=== PATIENT | female | born 1995 | race Caucasian/White ===

== ENCOUNTER 2019-09-13 14:39 | Emergency (ER) | payer BC, SELFPAY ==
[2019-09-13 14:59] VITALS: BP 124/76; PULSE 104; RESP 18; TEMP 36.9; O2SAT 99; BMI 28.1
--- NOTE | 2019-09-13 15:03 | HMH.EDUTC ---
[facility] [place] Clinical Impression: Otitis media Qualifiers: Otitis media type: unspecified Laterality: left Qualified Code(s): H66.92 - Otitis media, unspecified, left ear Disposition: Home, Self-Care Condition on Discharge: Good Instructions: Middle Ear Infection, Middle Ear Infections (Alternative Therapy), Sore Throat Additional Instructions: *Monitor Temp, Over the counter Motrin or Tylenol as directed/as needed Tylenol every 4 hours and Motrin every 6 hours (as long as your family doctor has told you that you can take it) for fever or pain. and straight to ER if unable to lower temp less than 101.0 after medication given *Warm salt water gargles may help to soothe the throat *Throat Lozenges *Warm fluids *Sleep elevated *Humidifier/Vaporizer *Flonase 2 sprays in each nostril daily but be aware that it may take 2-3 days before you notice improvement Follow up IMMEDIATELY for new or worsening symptoms or no Noticeable improvement over the next 48-72 hours. 911 for difficulty breathing or swallowing Prescriptions: Amoxicillin [Amoxicillin 500mg Cap] 500 mg PO TID #30 cap Transmission Status: Pending to [facility] Fluticasone Propionate [Flonase 50mcg nasal spray 16gm] 1 spr NS DAILY #1 bottle Transmission Status: Pending to [facility] Referrals: Provider,Referral, MD [Primary Care Provider] - As needed Time of Disposition: 15:16 Medical Decision Making - Viktor Inquiry Pt receiving controlled substance: No Viktor was queried for this patient: No Vital Signs: 09/13/19 14:59 Temperature 98.4 F Temperature Source Oral Pulse Rate [Right Brachial] 104 H Respiratory Rate 18 Blood Pressure [Right Arm] 124/76 Blood Pressure Mean [Right Arm] 92 Blood Pressure Source [Right Arm] Automatic Cuff Blood Pressure Position [Right Arm] Sitting 02 Sat by Pulse Oximetry 99 Oxygen Delivery Method Room Air - Lab Data Lab results reviewed: Yes: I reviewed the patient's lab results. [facility] [place] - General Stated complaint: ear pressure Time Seen by Provider: 09/13/19 15:03 Mode of Arrival: Ambulatory Source of Information: Patient Limitations: No Limitations Description of Symptoms (Recalled from Triage Doc. by RN): Pt reports having a sore throat for 5 days and ear pain for 3 days. She denies a fever or others symptoms at this time. HEENT Symptoms (Recalled from RN notes): Yes Resp Symptoms (Recalled from RN notes): No Skin Symptoms (Recalled from RN notes): No MS Symptoms (Recalled from RN notes): No Functional Status (Recalled from RN notes): NA - History of Present Illness Provider Complaint: Patient states that she has been sore throat and pressure like feeling in her left ear for about 5 days States that today she was still having pain with swallowing and throat feeling raw and irritated so she came in to get it checked Denies known exposure to COVID19 Denies fever - Related Data Previous Rx's Medication Instructions Recorded Amoxicillin [Amoxicillin 500mg 500 mg PO TID #30 cap 09/13/19 Cap] Fluticasone Propionate [Flonase 1 spr NS DAILY #1 bottle 09/13/19 50mcg nasal spray 16gm] Allergies Allergy/AdvReac Type Severity Reaction Status Date / Time No Known Allergies Allergy Verified 09/13/19 15:02 - Worker's Comp Is this a Worker's Comp case?: No [facility] History - Hepatitis A Screen Drug use history?: No High risk sexual behaviors?: No History of sexually transmitted infection?: No Currently employed?: No Childcare worker?: No Do you have indoor plumbing?: Yes Do you have electricity?: Yes Attestation statement:: This patient has been screened for Hepatitis A risk factors. I have reviewed the patient's past medical history: Yes Medical History: Denies:: Cancer, Diabetes Mellitus Type 1, Diabetes Mellitus Type 2, MRSA Amputation: No Fractures: No - Social History Smoking Status: Never smoker Alcohol Intake: never Occupational Status: emp
[2019-09-13 15:21] LABS: UTC Strep Screen (Rapid) Negative (Negative)
[2019-09-13 16:09] VITALS: BP 124/76; PULSE 104; RESP 18; TEMP 36.9; O2SAT 99
== END 2019-09-13 16:13 | disposition home or self-care (01) ==
PROVIDERS: Emergency Provider Nurse Practitioner
DX: H66.92 Otitis media, unspecified, left ear (principal)
CPT/HCPCS: 87880; 99201

== ENCOUNTER 2020-01-26 12:55 | Emergency (ER) | payer BC, SELFPAY ==
[2020-01-26 12:56] VITALS: BP 130/56; PULSE 96; RESP 19; TEMP 36.5; O2SAT 96; BMI 25.9
--- NOTE | 2020-01-26 13:23 | HMH.EDUTC ---
[facility] – [place] Disposition Clinical Impression: Sinusitis Qualifiers: Sinusitis location: unspecified location Chronicity: acute Recurrence: non-recurrent Qualified Code(s): J01.90 - Acute sinusitis, unspecified Disposition: Home, Self-Care Condition on Discharge: Good Instructions: Sinusitis, DI for Sinusitis Additional Instructions: Drink plenty of fluids. Take tylenol or ibuprofen for pain or fever. Take the medications as directed. Follow up with your regular doctor. GO TO THE ER FOR ANY WORSENING SYMPTOMS . FOLLOW THE DIRECTIONS ON THE COVID-19 HAND OUT THAT WE GAVE YOU REGARDING SELF-ISOLATION UNTIL YOU KNOW YOUR COVID-19 RESULTS Prescriptions: Brompheniramine/Pseudoephed/Dm [Bromfed Dm Cough Syrup] 5 ml PO Q6HP PRN #240 syrup PRN Reason: Cough Transmission Status: [facility] by [facility] Ondansetron [Zofran 4mg ODT] 4 mg PO Q8HP PRN #9 tab.rapdis PRN Reason: Nausea Transmission Status: Received by [facility] Azithromycin [Z-Jason 250mg Tab*] 250 mg PO UD DOSE PK #6 tab Transmission Status: Received by [id number] Referrals: PCP,No [Primary Care Provider] - Forms: Work/School Release Time of Disposition: 13:45 Medical Decision Making - Medical Records Medical records reviewed: No: I reviewed the patient's medical records. - Viktor Inquiry Pt receiving controlled substance: No Vital Signs: 01/26/20 12:56 01/26/20 14:12 Temperature 97.7 F 97.7 F Temperature Source Oral Oral Pulse Rate 96 H Pulse Rate [Left Radial] 96 H Respiratory Rate 19 19 Blood Pressure 130/56 L Blood Pressure [Right Arm] 130/56 L Blood Pressure Mean [Right Arm] 80 Blood Pressure Source [Right Arm] Automatic Cuff Blood Pressure Position [Right Arm] Sitting 02 Sat by Pulse Oximetry 96 Oxygen Delivery Method Room Air Room Air Orders (Tests/Meds): ORDERS Category Date Time Status Covid-19 Nasal PCR ([facility]) Routine Lab 01/26/20 13:35 Received [facility] [place] HPI - General Stated complaint: sore throat,ear pain,cough Time Seen by Provider: 01/26/20 13:23 Mode of Arrival: Ambulatory Source of Information: Patient Limitations: No Limitations Description of Symptoms (Recalled from Triage Doc. by RN): LAst night she started with ear tingling, no smell and hoarse HEENT Symptoms (Recalled from RN notes): Yes Resp Symptoms (Recalled from RN notes): No Skin Symptoms (Recalled from RN notes): No MS Symptoms (Recalled from RN notes): No Functional Status (Recalled from RN notes): wnl - History of Present Illness Provider Complaint: She states that for the past 2 days she has felt horrible. She has had a headache, sinus drainage, bilateral ear pain, nonproductive cough and sore throat. She denies any known exposure to covid, but she works at the [employer] around lots of people. - Related Data Previous Rx's Medication Instructions Recorded Amoxicillin [Amoxicillin 500mg 500 mg PO TID #30 cap 09/13/19 Cap] Fluticasone Propionate [Flonase 1 spr NS DAILY #1 bottle 09/13/19 50mcg nasal spray 16gm] Azithromycin [Z-Jason 250mg Tab*] 250 mg PO UD DOSE PK #6 tab 01/26/20 Brompheniramine/Pseudoephed/Dm 5 ml PO Q6HP PRN #240 syrup 01/26/20 [Bromfed Dm Cough Syrup] Ondansetron [Zofran 4mg ODT] 4 mg PO Q8HP PRN #9 tab.rapdis 01/26/20 Allergies Allergy/AdvReac Type Severity Reaction Status Date / Time No Known Allergies Allergy Verified 09/13/19 15:02 - Worker's Comp Is this a Worker's Comp case?: No [facility] History - Hepatitis A Screen Drug use history?: No High risk sexual behaviors?: No History of sexually transmitted infection?: No Currently employed?: No Childcare worker?: No Do you have indoor plumbing?: Yes Do you have electricity?: Yes Attestation statement:: This patient has been screened for Hepatitis A risk factors. I have reviewed the patient's past medical history: Yes Medical History: Denies:: Cancer, Diabetes Mellitus Type 1, Di
[2020-01-26 14:12] VITALS: BP 130/56; PULSE 96; RESP 19; TEMP 36.5; O2SAT 96
== END 2020-01-26 14:13 | disposition home or self-care (01) ==
PROVIDERS: Emergency Provider Nurse Practitioner Family
DX: J01.90 Acute sinusitis, unspecified (principal)
CPT/HCPCS: 99201; U0003

== ENCOUNTER 2021-04-10 20:53 | Emergency (ER) | payer SELFPAY ==
[2021-04-10 21:05] VITALS: BP 139/82; PULSE 132; RESP 20; TEMP 38.4; O2SAT 99; BMI 28.3
[2021-04-10 21:20] LABS: UTC Influenza A Antigen Negative (Negative); UTC Influenza B Antigen Negative (Negative); UTC Strep Screen (Rapid) Negative (Negative)
--- NOTE | 2021-04-10 21:21 | HMH.EDUTC ---
[facility] – [place] Disposition Clinical Impression: Viral syndrome Disposition: Home, Self-Care Condition on Discharge: Good Instructions: DI for Viral Syndrome, DI for Nausea -- Adult, DI for Fever (Symptom) -- Adult Additional Instructions: * No sign of bacterial infection. Likely viral. Virus can take 7-14 days to run their course *Monitor Temp, Over the counter Motrin or Tylenol as directed/as needed Tylenol every 4 hours and Motrin every 6 hours (as long as your family doctor has told you that you can take it) for fever or pain. and straight to ER if unable to lower temp less than 101.0 after medication given *Warm salt water gargles may help to soothe the throat *Throat Lozenges *Warm fluids like tea with honey may help to soothe the throat *Sleep elevated *Humidifier/Vaporizer Follow up IMMEDIATELY for new or worsening symptoms or no Noticeable improvement over the next 48-72 hours. 911 for difficulty breathing or swallowing You were tested for today for COVID19 your test result should be back in the next 24-48 hours, you may Check your results on the [facility] if you have trouble logging on you may call You was given a handout with instructions for Self Quarantine and Self isolation for while you wait on test results and what to do if they are positive If you are positive the Health Dept will be contacting you also Make sure to take your Vitamins Vit. C Vit D and Zinc if you can take them Prescriptions: Ondansetron [Zofran 4mg ODT] 4 mg PO TIDP PRN #10 tab PRN Reason: Nausea Transmission Status: Received by [facility] Referrals: Provider,Referral, [Primary Care Provider] - As needed Forms: Work/School Release Time of Disposition: 21:34 Medical Decision Making - Viktor Inquiry Pt receiving controlled substance: No Viktor was queried for this patient: No Vital Signs: 04/10/21 21:05 04/10/21 21:35 Temperature 101.1 F H 101.1 F H Temperature Source Oral Pulse Rate 132 H Pulse Rate [Right Brachial] 132 H Respiratory Rate 20 20 Blood Pressure 139/82 Blood Pressure [Right Arm] 139/82 Blood Pressure Mean [Right Arm] 101 Blood Pressure Source [Right Arm] Automatic Cuff Blood Pressure Position [Right Arm] Sitting 02 Sat by Pulse Oximetry 99 Oxygen Delivery Method Room Air - Lab Data Lab results reviewed: Yes: I reviewed the patient's lab results. Lab Results 04/10/21 21:09: Influenza Type A Ag Negative, Influenza Type B Ag Negative 04/10/21 21:09: Strep Scn Rapid [facility] Negative Orders (Tests/Meds): ED MEDICATIONS Discontinued Medications Generic Name Dose Route Start Last Admin Trade Name Freharish PRN Reason Stop Dose Admin Ibuprofen 800 mg 04/10/21 21:24 04/10/21 21:30 Ibuprofen 400 Mg Tablet PO 04/10/21 21:25 800 mg ONCE ONE Administration Ondansetron HCl 4 mg 04/10/21 21:29 04/10/21 21:30 Ondansetron 4mg Odt SL 04/10/21 21:30 4 mg ONCE ONE Administration ORDERS Category Date Time Status Covid-19 Nasal PCR ([facility]) Routine Lab 04/10/21 21:05 Stop Req Full Resp Panel w/COVID ([facility]) Routine Lab 04/10/21 21:05 Received Strep Screen Confirmation Stat Micro 04/10/21 21:09 Received [facility] UTC HPI - General Stated complaint: headache fever body ache nausea Time Seen by Provider: 04/10/21 21:22 Mode of Arrival: Ambulatory Source of Information: Patient Limitations: No Limitations Description of Symptoms (Recalled from Triage Doc. by RN): PATIENT C/O BODY ACHES, HEADACHE, CHILLS, AND SWEATS THAT STARTED APPROX 1500 THIS AFTERNOON HEENT Symptoms (Recalled from RN notes): Yes Resp Symptoms (Recalled from RN notes): No Skin Symptoms (Recalled from RN notes): No MS Symptoms (Recalled from RN notes): Yes Functional Status (Recalled from RN notes): WNL - History of Present Illness Provider Complaint: Patient state that she went to work this morning and was feeling a little achy States that as the day went on she continued to feel worse Sta
[2021-04-10 21:27] LABS: Adenovirus,PCR Not Detected (NotDetected); Bordetella Pertussis Not Detected (NotDetected); Chlamydophila Pneumoniae, PCR Not Detected (NotDetected); Coronavirus 229E Not Detected (NotDetected); Coronavirus NL63 Not Detected (NotDetected); Coronavirus OC43 Not Detected (NotDetected); Coronovirus HKU1,PCR Not Detected (NotDetected); Human Metapneumovirus Not Detected (NotDetected); Influenza A, PCR Not Detected (NotDetected); Influenza AH1, 2009 Not Detected (NotDetected); Influenza AH1, PCR Not Detected (NotDetected); Influenza AH3,PCR Not Detected (NotDetected); Influenza B, PCR Not Detected (NotDetected); Mycoplasma Pneumoniae, PCR Not Detected (NotDetected); Parainfluenza 1, PCR Not Detected (NotDetected); Parainfluenza 2, PCR Not Detected (NotDetected); Parainfluenza 3, PCR Not Detected (NotDetected); Parainfluenza 4, PCR Not Detected (NotDetected); Respiratory Syncytial Virus Not Detected (NotDetected); Rhinovirus/Enterovirus Not Detected (NotDetected)
[2021-04-10 21:35] VITALS: BP 139/82; PULSE 132; RESP 20; TEMP 37.9; O2SAT 99
[2021-04-11 04:13] LABS: Coronavirus 19, PCR Detected (NotDetected)
== END 2021-04-10 21:51 | disposition home or self-care (01) ==
PROVIDERS: Emergency Provider Nurse Practitioner
DX: U07.1 COVID-19 (principal)
CPT/HCPCS: 87581; 87632; 87798; 87804; 87880; 99203; C9803; G0463; U0003; U0005

== ENCOUNTER 2021-04-16 13:54 | Emergency (ER) | payer SELFPAY ==
[2021-04-16 15:40] VITALS: BP 121/71; PULSE 86; RESP 19; TEMP 37; O2SAT 100; BMI 21.9
[2021-04-16 15:52] VITALS: BP 121/71; PULSE 86; RESP 19; TEMP 37; O2SAT 100
--- NOTE | 2021-04-16 16:01 | HMH.EDUTC ---
[facility] – [place] Disposition Clinical Impression: COVID Disposition: Home, Self-Care Condition on Discharge: Good Instructions: DI for COVID-19 (Suspected or Confirmed ) Additional Instructions: covid swab was sent to lab, call tomorrow for results. self isolate until test results are known to be negative No sign of a bacterial infection. Likely viral. Viruses can take 7-14 days to run their course. Nasal saline and bulb syringe or nose Mar to remove nasal drainage to help with nasal congestion. Hard to eat, drink, sleep with nasal congestion so important to keep this cleaned out. Monitor temp. Tylenol or Motrin as needed for pain or fever Encourage fluids, water, Gatorade, Powerade, Pedialyte if infant/toddler/child Warm salt water gargles Warm fluids Sore throat lozenges Sleep elevated Humidifier/vaporizer Follow-up immediately for new or worsening symptoms or no noticeable improvement over the next 48-72 hours. Referrals: Provider,Referral, MD [Primary Care Provider] - Time of Disposition: 16:06 Medical Decision Making - Viktor Inquiry Pt receiving controlled substance: No Vital Signs: 04/16/21 15:40 04/16/21 15:52 Temperature 98.6 F 98.6 F Temperature Source Oral Pulse Rate 86 Pulse Rate [Right Brachial] 86 Respiratory Rate 19 19 Blood Pressure 121/71 Blood Pressure [Right Arm] 121/71 Blood Pressure Mean [Right Arm] 87 Blood Pressure Source [Right Arm] Automatic Cuff Blood Pressure Position [Right Arm] Sitting 02 Sat by Pulse Oximetry 100 Oxygen Delivery Method Room Air Orders (Tests/Meds): ORDERS Category Date Time Status Covid-19 Nasal PCR ([facility]) Routine Lab 04/16/21 15:51 Ordered [facility] [place] HPI - General Chief complaint: Urgent [facility] Stated complaint: covid positive 0104, covid test Time Seen by Provider: 04/16/21 16:01 Mode of Arrival: Ambulatory Source of Information: Patient Limitations: No Limitations Description of Symptoms (Recalled from Triage Doc. by RN): PATIENT NEEDING COVID TEST TO RETURN TO WORK HEENT Symptoms (Recalled from RN notes): No Resp Symptoms (Recalled from RN notes): No Skin Symptoms (Recalled from RN notes): No MS Symptoms (Recalled from RN notes): No Functional Status (Recalled from RN notes): WNL - History of Present Illness Provider Complaint: 25 yr old female presnets for covid test. tested positive 04/11 and needs a covid swab to return to work - Related Data Previous Rx's Medication Instructions Recorded Ondansetron [Zofran 4mg ODT] 4 mg PO TIDP PRN #10 tab 04/10/21 Allergies Allergy/AdvReac Type Severity Reaction Status Date / Time No Known Allergies Allergy Verified 09/13/19 15:02 - Worker's Comp Is this a Worker's Comp case?: No H History - Hepatitis A Screen Drug use history?: No High risk sexual behaviors?: No History of sexually transmitted infection?: No Currently employed?: No Childcare worker?: No Do you have indoor plumbing?: Yes Do you have electricity?: Yes Attestation statement:: This patient has been screened for Hepatitis A risk factors. I have reviewed the patient's past medical history: Yes Medical History: Denies:: Cancer, Diabetes Mellitus Type 1, Diabetes Mellitus Type 2, MRSA Amputation: No Fractures: No - Social History Smoking Status: Never smoker Alcohol Intake: never Occupational Status: employed ROS Obtained: Yes Systems reviewed as appropriate & no additional complaints - Constitutional Constitutional: Reports system reviewed and no additional complaints, except as docu, Denies fever(s) - Eyes Eyes: Reports system reviewed and no additional complaints, except as docu - ENT Ears, Nose, Mouth, and Throat: Reports system reviewed and no additional complaints, except as docu, Denies dizziness - Cardiovascular Cardiovascular: Reports system reviewed and no additional complaints, except as docu, Denies chest pain - Respiratory Respiratory: Reports system reviewed a
== END 2021-04-16 16:19 | disposition home or self-care (01) ==
PROVIDERS: Emergency Provider Nurse Practitioner Family
DX: U07.1 COVID-19 (principal)
CPT/HCPCS: 99202; C9803; G0463; U0003; U0005

== ENCOUNTER → 2022-02-22 13:07 | Outpatient (CLI) | payer OTHER, SELFPAY | PROVIDERS: PCP Nurse Practitioner Family; Visit Provider Nurse Practitioner Obstetrics & Gynecology | DX: N92.6 Irregular menstruation, unspecified (principal); Z32.00 Encounter for pregnancy test, result unknown | CPT/HCPCS: 36415; 84702 ==

== ENCOUNTER → 2022-03-06 09:52 | Outpatient (CLI) | payer OTHER, SELFPAY ==
[2022-03-06 10:38] LABS: Basophils # 0.1 K/mm3 (0-0.2); Basophils % 0.8 % (0.1-2.0); Eosinophils # 0.1 K/mm3 (0.0-0.4); Eosinophils % 1.2 % (0.1-12.0); Hematocrit 40.4 % (37.0-47.0); Hemoglobin 13.1 g/dL (12.2-16.2); Lymphocytes % 17.5 % (10-50); Mean Corpuscular HGB Conc 32.5 g/dL (31.8-35.4); Mean Corpuscular Hemoglobin 29.1 pg (27.0-31.2); Mean Corpuscular Volume 89.6 fl (81-99); Mean Platelet Volume 8.8 fl (7.4-10.4); Monocytes # 0.3 K/mm3 (0.1-1.0); Monocytes % 4.4 % (1.7-9.3); Neutrophils # 4.4 K/mm3 (1.8-7.8); Neutrophils % 76.1 % (37.0-80.0); Platelet Count 250 K/mm3 (142-424); Red Cell Distribution Width 12.6 % (11.5-17.5); White Blood Count 5.8 K/mm3 (4.8-10.8)
[2022-03-06 10:58] LABS: Alanine Aminotransferase 12 U/L (12-78); Albumin Level 4.6 g/dl (3.5-5.0); Albumin/Globulin Ratio 1.7 (1.1-1.8); Alkaline Phosphatase 91 U/L (38-126); Anion Gap 20.6 mEq/L (5-15); Aspartate Amino Transferase 22 U/L (14-36); Bilirubin,Total 0.6 mg/dl (0.2-1.3); Blood Urea Nitrogen 4 mg/dl (7-17); Calcium 9.6 mg/dl (8.4-10.2); Carbon Dioxide 24 mmol/L (22.0-30.0); Chloride 96 mmol/L (98-107); Estimated Glomerular Filt Rate 150 ml/min (>60); GFR (African American) 182 ML/MIN (>60); Globulin 2.7 g/dL (1.3-3.2); Glucose 90 mg/dl (74-100); Potassium 3.6 mmoL/L (3.5-5.1); Sodium 137 mmol/L (136-145); Total Protein,Serum 7.3 g/dl (6.3-8.2)
--- NOTE | 2022-03-06 11:08 | US_ITS ---
FINAL REPORT CLINICAL HISTORY: large reddened soft tissue mass rt sapular region FINDINGS: Limited sonographic images of the right scapula were obtained. There is a heterogeneous solid-appearing mass measuring up to 6 cm along the right scapula. IMPRESSION: Mass in the right scapula as detailed above. Follow-up MRI with and without contrast may be helpful. Reviewed, Interpreted and Dictated by Roland Colin MD Transcribed by Ivanna Du Authenticated and [facility]
== END ==
PROVIDERS: PCP Nurse Practitioner Family; Visit Provider Nurse Practitioner Family
DX: Q79.8 Other congenital malformations of musculoskeletal system (principal)
CPT/HCPCS: 36415; 76604; 80053; 85025

== ENCOUNTER 2022-03-15 09:08 | Day surgery (SDC) | payer OTHER, SELFPAY ==
[2022-03-14 10:54] VITALS: BMI 25.9
[2022-03-15 09:25] VITALS: BP 133/67; PULSE 107; RESP 18; TEMP 36.6; O2SAT 100
--- NOTE | 2022-03-15 10:38 | EXP.OP.NOTE ---
Date of procedure: 03/15/22 Pre-op Diagnosis:: Right posterior shoulder soft tissue mass Post-op Diagnosis:: Same Procedure performed:: Incisional biopsy of right posterior shoulder soft tissue mass Surgeon:: Juaquin Crews MD Anesthesia: local Estimated blood loss (mL): 15 Operative findings:: Soft tissue mass with the overall general appearance of firm adipose tissue with surrounding patchy hematoma Operative note:: After informed consent was obtained the patient was taken to the procedure room. Her right posterior shoulder was prepped and draped in a sterile fashion. After infiltration with local anesthetic a small elliptical incision was made along the lateral portion of the lesion. Underlying soft tissue with the appearance of firm adipose tissue and patchy surrounding hematoma was excised. Minimal tissue was obtained and the decision was made to proceed with a direct incisional biopsy from the superior margin of the lesion. After infiltration of local anesthetic a larger elliptical incision at the apex of the lesion was made. The underlying subcutaneous tissue was sharply dissected and passed off for pathologic evaluation. Due to the overall tension of the wound secondary to soft tissue swelling the decision to forego closure was made. Both sites were packed with dry gauze and dressings were applied. The patient was transferred to recovery in stable condition. Condition: stable Disposition: no change Specimens:: Incisional biopsy right posterior shoulder soft tissue mass Complications:: No immediate
== END 2022-03-15 10:50 | disposition home or self-care (01) ==
PROVIDERS: PCP Nurse Practitioner Family; Visit Provider Surgery
PROC: (CPT 23065; principal; 2022-03-15 10:15)
DX: Z79.899 Other long term (current) drug therapy; C44.692 Other specified malignant neoplasm of skin of right upper limb, including shoulder
CPT/HCPCS: 23065

== ENCOUNTER 2022-03-16 13:29 | Outpatient (CLI) | payer OTHER, SELFPAY | END 2022-03-16 13:48 | disposition home or self-care (01) | LOC: INF 13:31 | PROVIDERS: PCP Nurse Practitioner Family; Visit Provider Surgery | DX: D49.2 Neoplasm of unspecified behavior of bone, soft tissue, and skin (principal); Z48.01 Encounter for change or removal of surgical wound dressing | CPT/HCPCS: G0463 ==

== ENCOUNTER 2022-03-17 15:47 | Outpatient (CLI) | payer OTHER, SELFPAY ==
--- NOTE | 2022-03-17 16:36 | PC.NURSE ---
Pt came in with spouse for dressing change. I packed wound with saline soaked gauze, covered with abd pads, and applied medipore tape to hold all in place. In old dressing there were a few placed of dried blood. She had a little discomfort with taking the old dressing off. She tolerated over all very well.
== END 2022-03-17 16:00 | disposition home or self-care (01) ==
LOC: INF 15:48
PROVIDERS: PCP Nurse Practitioner Family; Visit Provider Surgery
DX: D49.2 Neoplasm of unspecified behavior of bone, soft tissue, and skin (principal); Z48.01 Encounter for change or removal of surgical wound dressing
CPT/HCPCS: G0463

== ENCOUNTER → 2022-03-18 14:44 | Outpatient (CLI) | payer OTHER, SELFPAY | PROVIDERS: PCP Nurse Practitioner Family; Visit Provider Surgery | DX: D49.2 Neoplasm of unspecified behavior of bone, soft tissue, and skin (principal); Z48.01 Encounter for change or removal of surgical wound dressing | CPT/HCPCS: G0463 ==

== ENCOUNTER 2022-03-19 11:47 | Outpatient (CLI) | payer OTHER, SELFPAY | END 2022-03-19 12:00 | disposition home or self-care (01) | LOC: INF 11:48 | PROVIDERS: PCP Nurse Practitioner Family; Visit Provider Surgery | DX: D49.2 Neoplasm of unspecified behavior of bone, soft tissue, and skin (principal); Z48.01 Encounter for change or removal of surgical wound dressing | CPT/HCPCS: G0463 ==

== ENCOUNTER 2022-03-20 12:32 | Outpatient (CLI) | payer OTHER, SELFPAY | END 2022-03-20 12:40 | disposition home or self-care (01) | LOC: INF 12:32 | PROVIDERS: PCP Nurse Practitioner Family; Visit Provider Surgery | DX: D49.2 Neoplasm of unspecified behavior of bone, soft tissue, and skin (principal); Z48.01 Encounter for change or removal of surgical wound dressing | CPT/HCPCS: G0463 ==

== ENCOUNTER 2022-03-22 12:28 | Outpatient (CLI) | payer OTHER, SELFPAY | END 2022-03-22 12:45 | disposition home or self-care (01) | LOC: INF 12:28 | PROVIDERS: PCP Nurse Practitioner Family; Visit Provider Surgery | DX: D49.2 Neoplasm of unspecified behavior of bone, soft tissue, and skin (principal); Z48.01 Encounter for change or removal of surgical wound dressing | CPT/HCPCS: G0463 ==

== ENCOUNTER 2022-03-23 11:24 | Outpatient (CLI) | payer OTHER, SELFPAY ==
--- NOTE | 2022-03-23 11:45 | PC.NURSE ---
1145-notifed of redness, heat, streaking, green/yellowish drainage; pack as normal; called in antibiotics and keep an eye out for other s/s of infection
== END 2022-03-23 11:58 | disposition home or self-care (01) ==
LOC: INF 11:24
PROVIDERS: PCP Nurse Practitioner Family; Visit Provider Surgery
DX: D49.2 Neoplasm of unspecified behavior of bone, soft tissue, and skin (principal); Z48.01 Encounter for change or removal of surgical wound dressing; M75.91 Shoulder lesion, unspecified, right shoulder
CPT/HCPCS: G0463

== ENCOUNTER 2022-03-24 15:42 | Outpatient (CLI) | payer OTHER, SELFPAY ==
[2022-03-24 16:09] VITALS: BMI 26.9
== END 2022-03-24 16:04 | disposition home or self-care (01) ==
LOC: INF 15:43
PROVIDERS: PCP Nurse Practitioner Family; Visit Provider Surgery
DX: Z48.01 Encounter for change or removal of surgical wound dressing (principal); D49.2 Neoplasm of unspecified behavior of bone, soft tissue, and skin
CPT/HCPCS: G0463

== ENCOUNTER 2022-03-25 18:39 | Outpatient (CLI) | payer OTHER, SELFPAY ==
[2022-03-25 19:00] VITALS: BMI 25.0
== END 2022-03-25 19:03 | disposition home or self-care (01) ==
LOC: INF 18:40
PROVIDERS: PCP Nurse Practitioner Family; Visit Provider Surgery
DX: Z48.01 Encounter for change or removal of surgical wound dressing (principal); D49.2 Neoplasm of unspecified behavior of bone, soft tissue, and skin
CPT/HCPCS: G0463

== ENCOUNTER 2022-03-26 10:58 | Outpatient (CLI) | payer OTHER, SELFPAY | END 2022-03-26 11:20 | disposition home or self-care (01) | LOC: INF 10:59 | PROVIDERS: PCP Nurse Practitioner Family; Visit Provider Surgery | DX: Z48.01 Encounter for change or removal of surgical wound dressing (principal); D49.2 Neoplasm of unspecified behavior of bone, soft tissue, and skin | CPT/HCPCS: G0463 ==

== ENCOUNTER 2022-03-27 11:24 | Outpatient (CLI) | payer OTHER, SELFPAY | END 2022-03-27 11:50 | disposition home or self-care (01) | LOC: INF 11:26 | PROVIDERS: PCP Nurse Practitioner Family; Visit Provider Nurse Practitioner Family | DX: Z48.01 Encounter for change or removal of surgical wound dressing (principal); D49.2 Neoplasm of unspecified behavior of bone, soft tissue, and skin | CPT/HCPCS: G0463 ==

== ENCOUNTER 2022-03-28 11:51 | Outpatient (CLI) | payer OTHER, SELFPAY | END 2022-03-28 12:31 | disposition home or self-care (01) | LOC: INF 11:51 | PROVIDERS: PCP Nurse Practitioner Family; Visit Provider Surgery | DX: Z48.01 Encounter for change or removal of surgical wound dressing (principal); D49.2 Neoplasm of unspecified behavior of bone, soft tissue, and skin | CPT/HCPCS: G0463 ==

== ENCOUNTER 2022-03-29 12:18 | Outpatient (CLI) | payer OTHER, SELFPAY | END 2022-03-29 12:40 | disposition home or self-care (01) | LOC: INF 12:19 | PROVIDERS: PCP Nurse Practitioner Family; Visit Provider Surgery | DX: Z48.01 Encounter for change or removal of surgical wound dressing (principal); D49.2 Neoplasm of unspecified behavior of bone, soft tissue, and skin | CPT/HCPCS: G0463 ==

== ENCOUNTER → 2022-03-29 12:51 | Outpatient (CLI) | payer OTHER, SELFPAY ==
--- NOTE | 2022-03-29 12:51 | MR_ITS ---
FINAL REPORT CLINICAL HISTORY: tigre patient has had a hump on the back of her scapula since feb 2022 patient stated it is tender patient has also been having it get packed and patient is also 11 weeks FINDINGS: Multiplanar MR imaging of the right shoulder was performed without contrast. The tendons of the rotator cuff are intact without evidence of rotator cuff tear. There is mild edema in the AC joint capsule. No abnormal fluid is seen in the subacromial/subdeltoid bursa. The glenoid labrum is intact. The long head of the biceps tendon is intact. No significant glenohumeral joint effusion is seen. There is no evidence of fracture or dislocation. The musculature is intact. There is a mass at the posterior aspect of the shoulder measuring 8 x 7.5 x 6 cm which does not appear to be simple fluid. This mass extends to the skin surface, abuts and likely involves the trapezius muscle. Findings may represent neoplasm versus complex fluid collection including abscess or hematoma. IMPRESSION: Mass in the posterior aspect of the shoulder with differential diagnosis as detailed above. Reviewed, Interpreted and Dictated by Abdulkadir Garcia III, MD Transcribed by Ivanna Du Authenticated and [facility]
== END ==
PROVIDERS: PCP Nurse Practitioner Family; Visit Provider Surgery
DX: D49.2 Neoplasm of unspecified behavior of bone, soft tissue, and skin (principal)
CPT/HCPCS: 73221

== ENCOUNTER → 2022-03-30 21:23 | Outpatient (CLI) | payer OTHER, SELFPAY ==
[2022-03-30 21:00] VITALS: BP 110/70; PULSE 76; RESP 16; TEMP 36.6; O2SAT 98
--- NOTE | 2022-03-30 21:30 | PC.NURSE ---
Patient presented for outpatient dressing change to right shoulder. States worried about infection, reports odor present today. States Bactrim called in last week, but she spoke with OB doctor and instructed not to take and another ABX would be called in. Dressing removed, large swollen area to right shoulder, 2 open areas present. Bright red bleeding present from top incision, tissue beefy red, lower incision with yellow slough present. Redness around incision. Spoke with Dr. Rojas regarding wound. Dr. Rojas in to assess wound. Site cleansed with saline and Hibclens, Dry sterile dressing applied covered with ABD pad. Verbal Order from Dr. Rojas for Keflex 500 mg tid x [address] [facility].
[2022-03-30 22:26] VITALS: BMI 26.3
== END ==
PROVIDERS: PCP Nurse Practitioner Family; Visit Provider Surgery
DX: Z48.01 Encounter for change or removal of surgical wound dressing (principal); D49.2 Neoplasm of unspecified behavior of bone, soft tissue, and skin
CPT/HCPCS: G0463

== ENCOUNTER → 2022-03-31 15:32 | Outpatient (CLI) | payer OTHER, SELFPAY ==
[2022-03-31 15:30] VITALS: BP 152/80; PULSE 109; RESP 17; TEMP 36.9; O2SAT 97
[2022-03-31 15:50] VITALS: BP 152/80; PULSE 109; RESP 17; TEMP 36.9; O2SAT 97
== END ==
PROVIDERS: PCP Nurse Practitioner Family; Visit Provider Surgery
DX: Z48.01 Encounter for change or removal of surgical wound dressing (principal); D49.2 Neoplasm of unspecified behavior of bone, soft tissue, and skin
CPT/HCPCS: G0463

== ENCOUNTER 2022-04-01 16:52 | Outpatient (CLI) | payer OTHER, SELFPAY | END 2022-04-01 17:16 | disposition home or self-care (01) | LOC: INF 16:53 | PROVIDERS: PCP Nurse Practitioner Family; Visit Provider Surgery | DX: Z48.01 Encounter for change or removal of surgical wound dressing (principal); D49.2 Neoplasm of unspecified behavior of bone, soft tissue, and skin | CPT/HCPCS: G0463 ==

== ENCOUNTER 2022-04-02 12:36 | Outpatient (CLI) | payer OTHER, SELFPAY | END 2022-04-02 12:45 | disposition home or self-care (01) | LOC: INF 12:37 | PROVIDERS: PCP Nurse Practitioner Family; Visit Provider Surgery | DX: Z48.01 Encounter for change or removal of surgical wound dressing (principal); D49.2 Neoplasm of unspecified behavior of bone, soft tissue, and skin | CPT/HCPCS: G0463 ==

== ENCOUNTER 2022-04-03 12:30 | Outpatient (CLI) | payer OTHER, SELFPAY ==
--- NOTE | 2022-04-03 12:50 | PC.NURSE ---
1690-called and notified prema in 's office that patient was walking over and needs to be seen soon for worsening condition.
== END 2022-04-03 12:48 | disposition home or self-care (01) ==
LOC: INF 12:30
PROVIDERS: PCP Nurse Practitioner Family; Visit Provider Surgery
DX: Z48.01 Encounter for change or removal of surgical wound dressing (principal); D49.2 Neoplasm of unspecified behavior of bone, soft tissue, and skin
CPT/HCPCS: G0463

== ENCOUNTER → 2022-04-12 10:00 | Outpatient (CLI) | payer OTHER, SELFPAY ==
[2022-04-16 22:07] LABS: Neisseria gonorrhoeae, NAA Negative (Negative)
== END ==
PROVIDERS: Visit Provider Nurse Practitioner Obstetrics & Gynecology
DX: Z34.90 Encounter for supervision of normal pregnancy, unspecified, unspecified trimester (principal)
CPT/HCPCS: 87491; 87591

== ENCOUNTER → 2022-04-16 15:18 | Outpatient (CLI) | payer OTHER, SELFPAY | PROVIDERS: PCP Nurse Practitioner Family; Visit Provider Orthopaedic Surgery | DX: Z01.812 Encounter for preprocedural laboratory examination (principal) | CPT/HCPCS: C9803; U0003; U0005 ==

== ENCOUNTER 2022-05-11 16:16 | Emergency (ER) | payer OTHER, SELFPAY ==
--- NOTE | 2022-05-11 16:32 | HMH.EDGENADL ---
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 Subsequently she had a skin graft with Dr. Felton with plastic surgery. She has felt good over the last month but to the last 2 days. At which point she began having generalized malaise feeling like she was near syncope and having significant increased pain erythema and foul-smelling just discharge from her wound. She called plastic surgery clinic who told her to come get evaluated [facility] her to being sent to the [facility]. To complicate matters further she is also 16 weeks . Related Data Home Medications Medication Instructions Recorded Confirmed zngmjqik-niw-Mu-FA 1 mg 1 tab PO DAILY Supplement 03/14/22 05/09/22 tablet Allergies Allergy/AdvReac Type Severity Reaction Status Date / Time No Known Allergies Allergy Verified 05/09/22 09:38 [facility] Disclaimer: The information contained in this section may have been updated after the patient was seen, as this information can be updated by other users. Medical History No significant past medical history Surgical History Hx of surgical biopsy right shoulder mass Family History Other Family history of cancer Family history of diabetes mellitus Lung cancer Social History Smoking Status: Never smoker alcohol intake: never current occupational status: employed Travel in the last 8 weeks: None caffeine: Yes ROS Obtained: Yes All systems reviewed & no additional complaints except as documented and Yes unobtainable due to mental condition Physical Exam General General appearance: alert and in no apparent distress Head Head exam: atraumatic and normocephalic Eye Eye exam: Present normal appearance, PERRL and EOMI ENT ENT exam: Present normal exam and normal oropharynx Neck Neck exam: Present normal inspection, full ROM and trachea midline; Absent tenderness Chest Chest inspection: Present normal inspection and symmetric chest wall rise Respiratory Respiratory exam: Present normal lung sounds bilaterally; Absent respiratory distress, wheezes or stridor Cardiovascular Cardiovascular exam: Present tachycardia Abdominal Exam Abdominal exam: Present soft; Absent distention, tenderness or guarding Back Exam Back exam: Present other (Patient has large wounds extending on the lateral aspect of her right back and flank and her right shoulder which have purulent and proteinaceous debris with mild erythema and tenderness surrounding all the wounds upon any type of palpation there is a significant amount of purulent drainage that ext) Neurological Exam Neurological exam: Present alert, oriented X3 and CN II-XII intact Medical Decision Making Viktor Inquiry Pt receiving controlled substance: No Orders (Tests/Meds): ED MEDICATIONS Generic Name Dose Route Start Last Admin Trade Name Freq PRN Reason Stop Dose Admin Sodium Chloride 500 mls @ 999 mls/hr 05/11/22 17:00 05/11/22 17:01 Sod Chlor 0.9% 1000ml Bag IV 05/11/22 17:30 999 mls/hr .Q31M SAUMYA Administration Vancomycin HCl 1,500 mg/ 250 mls @ 125 mls/hr 05/11/22 17:00
[2022-05-11 16:51] VITALS: BP 107/53; PULSE 137; RESP 20; TEMP 37.1; O2SAT 97; BMI 24.5
--- NOTE | 2022-05-11 16:52 | PC.NURSE ---
Consulting [facility] [place] plastic surgery team
[2022-05-11 17:15] LABS: Basophils % 0.4 % (0.1-2.0); Eosinophils # 0.1 K/mm3 (0.0-0.4); Hematocrit 30.9 % (37.0-47.0); Hemoglobin 10.2 g/dL (12.2-16.2); Lymphocytes # 0.8 K/mm3 (0.7-4.5); Lymphocytes % 9.4 % (10-50); Mean Corpuscular HGB Conc 33.1 g/dL (31.8-35.4); Mean Corpuscular Hemoglobin 28.8 pg (27.0-31.2); Mean Corpuscular Volume 86.8 fl (81-99); Mean Platelet Volume 8.7 fl (7.4-10.4); Monocytes # 0.5 K/mm3 (0.1-1.0); Monocytes % 6.1 % (1.7-9.3); Neutrophils # 6.6 K/mm3 (1.8-7.8); Neutrophils % 83.1 % (37.0-80.0); Platelet Count 439 K/mm3 (142-424); Red Blood Count 3.55 M/mm3 (4.20-5.40); Red Cell Distribution Width 14.1 % (11.5-17.5); White Blood Count 7.9 K/mm3 (4.8-10.8)
--- NOTE | 2022-05-11 17:16 | PC.NURSE ---
JOHN MUHAMMAD speaking with [facility]
--- NOTE | 2022-05-11 17:21 | PC.NURSE ---
has accepted patient; er to er
[2022-05-11 17:24] LABS: Alanine Aminotransferase 19 U/L (12-78); Albumin Level 3.7 g/dl (3.5-5.0); Alkaline Phosphatase 172 U/L (38-126); Anion Gap 10.7 mEq/L (5-15); Aspartate Amino Transferase 21 U/L (14-36); Bilirubin,Total 0.3 mg/dl (0.2-1.3); Blood Urea Nitrogen 7 mg/dl (7-17); Calcium 8.8 mg/dl (8.4-10.2); Carbon Dioxide 26 mmol/L (22.0-30.0); Chloride 103 mmol/L (98-107); Creatinine Clearance Estimated 204 mL/min (50-200); Estimated Glomerular Filt Rate 150 ml/min (>60); GFR (African American) 182 ML/MIN (>60); Globulin 3.6 g/dL (1.3-3.2); Glucose 101 mg/dl (74-100); Potassium 3.7 mmoL/L (3.5-5.1); Sodium 136 mmol/L (136-145); Total Protein,Serum 7.3 g/dl (6.3-8.2)
[2022-05-11 17:29] LABS: C-Reactive Protein 130.2 mg/L (0-4)
[2022-05-11 17:32] VITALS: BP 103/46; PULSE 120; RESP 17; O2SAT 100
[2022-05-11 17:43] VITALS: BP 100/40; PULSE 113; RESP 17; O2SAT 99
--- NOTE | 2022-05-11 17:47 | PC.NURSE ---
called report to malu dickerson at
--- NOTE | 2022-05-11 17:53 | PC.NURSE ---
Notified [facility] of patient transfer to ER
[2022-05-11 18:00] VITALS: BP 100/46; PULSE 114; RESP 16; O2SAT 100
[2022-05-11 18:14] LABS: Erythrocyte Sedimentation Rate > 140 mm/hr (0-20)
[2022-05-11 19:44] VITALS: BP 100/87; PULSE 114; RESP 18; TEMP 37.1; O2SAT 100
== END 2022-05-11 19:57 | disposition other institution (70) ==
PROVIDERS: Emergency Provider Student in an Organized Health Care Education/Training Program; PCP Nurse Practitioner Family
DX: T81.40XA Infection following a procedure, unspecified, initial encounter (principal); X58.XXXA Exposure to other specified factors, initial encounter; C49.9 Malignant neoplasm of connective and soft tissue, unspecified; Z80.9 Family history of malignant neoplasm, unspecified; Z83.3 Family history of diabetes mellitus
CPT/HCPCS: 80053; 85025; 85651; 86140; 87040; 90471; 96361; 96365; 96375; 99285; J2543; J3370

== ENCOUNTER → 2022-05-31 09:39 | Outpatient (CLI) | payer OTHER, SELFPAY ==
--- NOTE | 2022-05-31 09:39 | US_ITS ---
FINAL REPORT CLINICAL HISTORY: 20 week anatomy scan FINDINGS: There is a single live intrauterine gestation. Presentation is breech. The cervix is closed and measures 3.3 cm. Placenta is anterior grade 1. movement is noted. Heartbeat is detected at 147 beats per minute. Four-chamber heart is noted. ABDOMEN: Both kidneys are unremarkable. SPINE: No anomalies identified. MEASUREMENTS: ULTRASOUND AGE: 20 weeks 4 days. GESTATION AGE: 20 weeks 3 days. ESTIMATED WEIGHT: 356 g GROWTH PERCENTILE: 48 % BPD: 4.87 cm corresponding to 20 weeks 6 days. OFD: 6.19 cm corresponding to 20 weeks 6 days. HC: 17.50 cm corresponding to 20 weeks day. AC: 15.46 cm corresponding to 20 weeks 5 days. FL: 3.31 cm corresponding to 20 weeks 3 days. CEREBELLUM: 2.03 cm corresponding to 20 weeks 5 days. HUMERUS: 3.27 cm corresponding to 21 weeks 1 day. HC/AC: 1.13 CI: 79% FL/BPD: 68% FL/AC: 21% IMPRESSION: Single living IUP with an ultrasound age of 20 weeks 4 days. Reviewed, Interpreted and Dictated by Abdulkadir Garcia III, MD Transcribed by Ivanna Du Authenticated and [facility]
== END ==
PROVIDERS: PCP Nurse Practitioner Family; Visit Provider Nurse Practitioner Obstetrics & Gynecology
DX: Z34.90 Encounter for supervision of normal pregnancy, unspecified, unspecified trimester (principal); Z3A.20 20 weeks gestation of pregnancy
CPT/HCPCS: 76811

== ENCOUNTER → 2022-06-06 11:15 | Outpatient (CLI) | payer OTHER, SELFPAY ==
[2022-06-06 12:18] LABS: Basophils # 0.1 K/mm3 (0-0.2); Basophils % 0.6 % (0.1-2.0); Eosinophils # 0.1 K/mm3 (0.0-0.4); Eosinophils % 1.2 % (0.1-12.0); Hematocrit 31.2 % (37.0-47.0); Hemoglobin 10.3 g/dL (12.2-16.2); Lymphocytes # 1.2 K/mm3 (0.7-4.5); Lymphocytes % 15.8 % (10-50); Mean Corpuscular HGB Conc 32.9 g/dL (31.8-35.4); Mean Corpuscular Hemoglobin 28.5 pg (27.0-31.2); Mean Corpuscular Volume 86.5 fl (81-99); Mean Platelet Volume 8.9 fl (7.4-10.4); Monocytes # 0.4 K/mm3 (0.1-1.0); Monocytes % 5.2 % (1.7-9.3); Neutrophils # 5.7 K/mm3 (1.8-7.8); Neutrophils % 77.1 % (37.0-80.0); Platelet Count 346 K/mm3 (142-424); Red Blood Count 3.61 M/mm3 (4.20-5.40); Red Cell Distribution Width 15.2 % (11.5-17.5); White Blood Count 7.4 K/mm3 (4.8-10.8)
[2022-06-07 09:24] LABS: Rubella Antibodies, IgG 1.88 index (Immune >0.99)
[2022-06-07 12:12] LABS: Rapid Plasma Reagin Ab Titer Non Reactive (NonRea<1:1)
[2022-06-09 23:15] LABS: HIV Screen 4th Generation wRfx NON REACTIVE; Hepatitis B Surface Antigen NEGATIVE; Hepatitis C Antibody NON REACTIVE
== END ==
PROVIDERS: PCP Nurse Practitioner Family; Visit Provider Nurse Practitioner Obstetrics & Gynecology
DX: Z34.90 Encounter for supervision of normal pregnancy, unspecified, unspecified trimester (principal)
CPT/HCPCS: 36415; 85025; 86593; 86703; 86762; 86850; 87340; 87380; G0432

== ENCOUNTER → 2022-07-11 11:22 | Outpatient (CLI) | payer OTHER, SELFPAY ==
[2022-07-11 11:50] LABS: Basophils % 0.5 % (0.1-2.0); Eosinophils # 0.1 K/mm3 (0.0-0.4); Eosinophils % 1.6 % (0.1-12.0); Hematocrit 32.8 % (37.0-47.0); Hemoglobin 10.4 g/dL (12.2-16.2); Lymphocytes # 1.2 K/mm3 (0.7-4.5); Mean Corpuscular HGB Conc 31.7 g/dL (31.8-35.4); Mean Corpuscular Volume 82.1 fl (81-99); Mean Platelet Volume 9.9 fl (7.4-10.4); Monocytes # 0.3 K/mm3 (0.1-1.0); Monocytes % 4.4 % (1.7-9.3); Neutrophils # 4.7 K/mm3 (1.8-7.8); Neutrophils % 74.5 % (37.0-80.0); Platelet Count 237 K/mm3 (142-424); Red Blood Count 3.99 M/mm3 (4.20-5.40); White Blood Count 6.3 K/mm3 (4.8-10.8)
[2022-07-11 12:01] LABS: Glucose,Fasting 77 mg/dl (74-100)
[2022-07-11 13:37] LABS: Glucose 1 Hour 88 mg/dL (74-100)
== END ==
PROVIDERS: PCP Nurse Practitioner Family; Visit Provider Nurse Practitioner Obstetrics & Gynecology
DX: Z34.90 Encounter for supervision of normal pregnancy, unspecified, unspecified trimester (principal); Z3A.25 25 weeks gestation of pregnancy
CPT/HCPCS: 36415; 82951; 85025

== ENCOUNTER 2022-09-11 08:48 | Outpatient (CLI) | payer OTHER, SELFPAY ==
[2022-09-11 09:07] VITALS: BP 115/74; PULSE 107; RESP 16; TEMP 36.8; O2SAT 99; BMI 29.2
[2022-09-11 10:03] VITALS: BMI 29.6
[2022-09-11 10:20] LABS: Microscopic, Urine URINE MICROSCOPIC (MICROSCOPIC)
[2022-09-11 10:29] LABS: Appearance,Urine CLEAR (Clear); Bilirubin,Urine Negative (Negative); Blood, Urine 2+ (Negative); Color,Urine YELLOW (Yellow); Glucose,Urine (UA) Negative (Negative); Ketones,Urine Negative (Negative); Leukocyte Esterase,Urine Negative (Negative); Nitrate,Urine Negative (Negative); Protein,Urine TRACE (Negative); Urobilinogen,Urine 0.2 EU/dl (0.2)
[2022-09-11 10:36] LABS: Bacteria,Urine 1+ /lpf; WBC,Urine Occasional #/hpf (0-3)
[2022-09-11 10:37] LABS: Amphetamine/Metha Screen,Urine Negative ng/ml (<1000)
[2022-09-11 10:38] LABS: Barbiturates Screen,Urine Negative ng/ml (<200)
[2022-09-11 10:39] LABS: Benzodiazepines Screen,Urine Negative ng/ml (<200); Cannabinoid Screen,Urine Negative ng/ml (<50)
[2022-09-11 10:40] LABS: Cocaine Screen,Urine Negative ng/ml (<300); Methadone Screen,Urine Negative ng/ml (<300)
[2022-09-11 10:41] LABS: Phencyclidine Screen,Urine Negative ng/ml (<25)
[2022-09-11 10:42] LABS: Opiate Screen,Urine Negative ng/ml (<300)
== END 2022-09-11 11:03 | disposition home or self-care (01) ==
LOC: OBOUT 08:50 → OB 08:50
PROVIDERS: PCP Nurse Practitioner Family; Visit Provider Nurse Practitioner Obstetrics & Gynecology
DX: O26.893 Other specified pregnancy related conditions, third trimester (principal); Z3A.35 35 weeks gestation of pregnancy
CPT/HCPCS: 59025; 80305; 81001; 96365; G0463

== ENCOUNTER 2022-09-19 09:40 | Outpatient (CLI) | payer OTHER, SELFPAY ==
--- NOTE | 2022-09-19 09:40 | US_ITS ---
PROCEDURE: US OB BIOPHYSICAL PROFILE CLINICAL INDICATION: sga COMPARISON: Twenty week anatomy scan, May 10, 2022. FINDINGS: From her last menstrual period she is 36weeks 2days. The following parameters are obtained: Viable fetus in the breech presentation. Average ultrasound age is 35weeks 5days. Estimated due date by ultrasound is 10/19/2022. Estimated weight is 2,692 grams ,5lb 14.94oz. 31percentile. heart rate: 139bpm bpm. BPD: 36weeks 3days OFD: 36weeks 3days HC: 35 weeks 5 days AC: 35 weeks 2 days FL: 35 weeks 5 days HC/AC: 1.01 Cephalic index: 0.8 FL/BPD: 0.78 FL/AC: 0.22 Amniotic fluid index: 5.82cm breathing movements: Were seen. The rest of the biopsies profile was not documented. Doppler evaluation of the umbilical artery: SD ratio: 2.0 Resistive index: 0.51 No obvious anomalies evident.Kidney, three-vessel cord appear normal. Placenta: Anterior grade 2 IMPRESSION: 1. Viable fetus in the breech presentation with an anterior placenta grade 2. 2. Amniotic fluid index is low at 5.82. 3. There has been good interval growth and the fetus is 31st percentile 4. Biophysical profile was not documented but breathing movement is seen on the cine loop. 5. The physician on-call was notified of the results. Dictated by: Nigel Ward MD 09/19/2022 19:04 Nigel Ward MD in OV 09/19/2022 19:04
[2022-09-19 12:13] VITALS: BP 119/59; PULSE 86; RESP 18; TEMP 36.6; BMI 30.4
== END 2022-09-19 13:40 | disposition home or self-care (01) ==
LOC: RAD 11:51 → OB 11:52
PROVIDERS: PCP Nurse Practitioner Family; Visit Provider Nurse Practitioner Obstetrics & Gynecology
DX: O36.5930 Maternal care for other known or suspected poor fetal growth, third trimester, not applicable or unspecified (principal); Z3A.36 36 weeks gestation of pregnancy
CPT/HCPCS: 59025; 76816; 76819; 76820

== ENCOUNTER → 2022-09-22 08:59 | Outpatient (CLI) | payer OTHER, SELFPAY | PROVIDERS: Visit Provider Obstetrics & Gynecology | DX: Z34.93 Encounter for supervision of normal pregnancy, unspecified, third trimester (principal); Z3A.36 36 weeks gestation of pregnancy | CPT/HCPCS: 86403 ==

== ENCOUNTER → 2022-10-02 14:50 | Outpatient (CLI) | payer OTHER, SELFPAY ==
--- NOTE | 2022-10-02 14:51 | US_ITS ---
PROCEDURE: US OB BIOPHYSICAL PROFILE CLINICAL INDICATION: breech COMPARISON: Ultrasound September 19, 2022 FINDINGS: From her last menstrual period she is 38weeks 1day. Fetus in the breech presentation with an anterior placenta grade 2. The fluid is subjectively low. The following parameters are obtained: Average ultrasound age is 37weeks 2days. Estimated due date by ultrasound is 10/21/2022. Estimated weight is 6lb 13.46oz. 52Percentile. heart rate: 138bpm bpm. BPD: 38weeks 1day OFD: 38weeks 1day HC: 37 weeks 0 days AC: 37 weeks 0 days FL: 37 weeks 1 day HC/AC: 0.99 Cephalic index: 0.82 FL/BPD: 0.78 FL/AC: 0.22 Amniotic fluid index: 6.34cm Qualitative AFV: 2 breathing movements: 0 Gross body movements: 2 Tone: 2 Biophysical profile score: 6 No obvious anomalies evident.Kidneys, three-vessel cord appear normal. IMPRESSION: 1. Fetus persists in the breech presentation. 2. Anterior placenta grade 2. 3. The fluid is low with an amniotic fluid index of 6.34 cm. 4. Biophysical profile 09/13. No breathing movement seen. 5. Patient is to go to labor and delivery for NST. 6. Physician notified. Dictated by: Nigel Ward MD 10/03/2022 07:12 Nigel Ward MD in OV 10/03/2022 07:12
== END ==
PROVIDERS: PCP Nurse Practitioner Obstetrics & Gynecology; Visit Provider Nurse Practitioner Obstetrics & Gynecology
DX: O32.1XX0 Maternal care for breech presentation, not applicable or unspecified (principal)
CPT/HCPCS: 76816; 76819

== ENCOUNTER 2022-10-02 17:22 | Inpatient (IN) | payer OTHER, SELFPAY ==
[2022-10-02 16:15] VITALS: BP 131/84; PULSE 106; RESP 20; TEMP 37.2; O2SAT 97; BMI 30.2
[2022-10-02 17:23] VITALS: BMI 30.2
[2022-10-02 17:44] LABS: Basophils % 0.1 % (0.1-2.0); Eosinophils # 0.1 K/mm3 (0.0-0.4); Hematocrit 30.7 % (37.0-47.0); Hemoglobin 10.1 g/dL (12.2-16.2); Lymphocytes % 12.8 % (10-50); Mean Corpuscular Hemoglobin 24.8 pg (27.0-31.2); Mean Platelet Volume 10.6 fl (7.4-10.4); Monocytes # 0.4 K/mm3 (0.1-1.0); Monocytes % 5.4 % (1.7-9.3); Neutrophils # 6.2 K/mm3 (1.8-7.8); Neutrophils % 80.7 % (37.0-80.0); Platelet Count 242 K/mm3 (142-424); Red Blood Count 4.09 M/mm3 (4.20-5.40); Red Cell Distribution Width 16.2 % (11.5-17.5); White Blood Count 7.7 K/mm3 (4.8-10.8)
[2022-10-03] VITALS (9 sets, daily range): BP systolic 96–130; BP diastolic 62–81; PULSE 70–92; RESP 16–19; TEMP 36.1–37.3; O2SAT 98–100; BMI 30.2
--- NOTE | 2022-10-03 09:05 | EXP.HP ---
History of Present Illness *Admission Date: 10/02/22 *Reason for visit:: Oligohydramnios, breech, irregular heartbeat *History of present illness: She is a 26-year-old 3 para 1 at 38 weeks gestational age. She is known to have a breech presentation. This was confirmed yesterday at the time of ultrasound. She had mild oligohydramnios with an amniotic fluid index of 6 cm. At the time of her ultrasound there was no breathing movement seen. We took her upstairs for a nonstress test the baby was having an irregular heartbeat and it seemed to be skipping a beat every fourth beat. As result of the irregular heartbeat, lack of breathing movements and oligohydramnios we elected to admit her and perform a section. She also had a large mass on her right shoulder early in . 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 [facility] Disclaimer: The information contained in this section may have been updated after the patient was seen, as this information can be updated by other users. Medical History No significant past medical history Surgical History Hx of surgical biopsy Family History Family history of cancer Family history of diabetes mellitus Lung cancer Social History Smoking Status: Never smoker alcohol intake: never current occupational status: employed Travel in the last 8 weeks: None caffeine: Yes Review of Systems Review of Systems Review of systems:: pertinent systems reviewed and negative unless documented below Meds Home Medications and Allergies Home Medications Medication Instructions Recorded Confirmed Type fixleybv-nhx-Mm-FA 1 mg 1 tab PO DAILY Supplement 03/14/22 10/03/22 History tablet ferrous sulfate 325 mg (65 mg 325 mg PO DAILY Supplement 10/03/22 10/03/22 History iron) tablet New Prescriptions to Start Prescriptions: Allergies Allergy/AdvReac Type Severity Reaction Status Date / Time No Known Allergies Allergy Verified 09/27/22 13:51 Exam Data for Last 24 hours Vital signs and Labs for Last 24 Hours: Temp Pulse Resp BP Pulse Ox 98.9 F 106 H 20 131/84 97 10/02/22 16:15 10/02/22 16:15 10/02/22 16:15 10/02/22 16:15 10/02/22 16:15 Laboratory Results - last 24 hr 10/02/22 17:25: WBC 7.7, RBC 4.09 L, Hgb 10.1 L, Hct 30.7 L, MCV 75.0 L, MCH 24.8 L, MCHC 33.0, RDW 16.2, Plt Count 242, MPV 10.6 H, Neut % (Auto) 80.7 H, Lymph % (Auto) 12.8, Callaway % (Auto) 5.4, Eos % (Auto) 1.0, Baso % (Auto) 0.1, Neut # (Auto) 6.2, Lymph # (Auto) 1.0, Callaway # (Auto) 0.4, Eos # (Auto) 0.1, Baso # (Auto) 0.0 10/02/22 17:25: Blood Type B Positive, Antibody Screen Negative I & O for Last 24 hours: Intake & Output 09/30/22 10/01/22 10/02/22 10/03/22 11:59 11:59 11:59 11:59 Weight 199 lb Constitutional Constitutional: no acute distress *Routine HEENT Exam Head: Present normocephalic Eye: Present EOMI and PERRL ENT: Present mucous membranes moist *Routine Neck Exam Neck: Present supple; Absent lymphadenopathy *Routine Respiratory Exam Respiratory: Present CTA bilaterally *Routine Cardiovascular Exam Cardiovascular: Present RRR *Routine Abdominal Exam Abdominal: Present soft and normoactive bowel sounds; Absent tenderness *Routine Rectal Exam Rectal:: deferred *Routine Genitalia Exam Genitalia:: deferred *Routine Extremities Exam Extremities: Absent cyanosis, clubbing or edema *Routine Skin Exam Skin: Present warm; Absent rash *Routine Neurological Exam Neurological: Present alert and oriented X3 Assessment and Plan *Assessment and plan (1) Breech presentation: Status: Acute Category: Medical Code(s): O32.1XX0 - Maternal care for breech presentation, not applic
[2022-10-03 09:11] LABS: Chloride 106 mmol/L (98-107)
[2022-10-03 09:12] LABS: Potassium 3.6 mmoL/L (3.5-5.1); Sodium 135 mmol/L (136-145)
[2022-10-03 09:15] LABS: Anion Gap 8.6 mEq/L (5-15); Blood Urea Nitrogen 6 mg/dl (7-17); Calcium 8.4 mg/dl (8.4-10.2); Carbon Dioxide 24 mmol/L (22.0-30.0); Creatinine Clearance Estimated 306 mL/min (50-200); Estimated Glomerular Filt Rate 194 ml/min (>60); GFR (African American) 235 ML/MIN (>60); Glucose 77 mg/dl (74-100)
[2022-10-03 10:41] LABS: Microscopic, Urine URINE MICROSCOPIC (MICROSCOPIC)
[2022-10-03 10:44] LABS: Appearance,Urine CLEAR (Clear); Bilirubin,Urine Negative (Negative); Blood, Urine Negative (Negative); Color,Urine YELLOW (Yellow); Glucose,Urine (UA) Negative (Negative); Ketones,Urine Negative (Negative); Leukocyte Esterase,Urine Negative (Negative); Nitrate,Urine Negative (Negative); Protein,Urine Negative (Negative)
[2022-10-03 11:12] LABS: Bacteria,Urine 1+ /lpf; RBC,Urine Occasional #/hpf (0-3)
[2022-10-03 11:20] LABS: Amphetamine/Metha Screen,Urine Negative ng/ml (<1000)
[2022-10-03 11:21] LABS: Barbiturates Screen,Urine Negative ng/ml (<200); Benzodiazepines Screen,Urine Negative ng/ml (<200)
[2022-10-03 11:22] LABS: Cannabinoid Screen,Urine Negative ng/ml (<50)
[2022-10-03 11:23] LABS: Cocaine Screen,Urine Negative ng/ml (<300); Methadone Screen,Urine Negative ng/ml (<300)
[2022-10-03 11:24] LABS: Opiate Screen,Urine Negative ng/ml (<300); Phencyclidine Screen,Urine Negative ng/ml (<25)
--- NOTE | 2022-10-03 12:07 | P.PN_ITS ---
[facility] Disclaimer: The information contained in this section may have been updated after the patient was seen, as this information can be updated by other users. Medical History No significant past medical history Surgical History Hx of surgical biopsy Family History Family history of cancer Family history of diabetes mellitus Lung cancer Social History Smoking Status: Never smoker alcohol intake: never substance use type: denies use current occupational status: employed Travel in the last 8 weeks: None caffeine: Yes [facility] Anesthesia Checklist Patient Identification Patient Identification: Arm Band and Verbal (Name & ) Structural Data Admitted From: Direct Admit Planned Operative Procedure/s: c section Verified Documents: Surgical Consent and History and Physical NPO Status Verified Time NPO: 00:00 Airway Assessment C-Spine Mobility Assessed: Yes TMJ Mobility Assessed: Yes Neurological Assessment Level of Consciousness: Awake and Alert Hx Seizures: No Numbness or tingling in extremities: No Anesthesia Plan Anesthesia Risk discussed: Yes ASA Class: II Anesthesia Type: Spinal
--- NOTE | 2022-10-03 13:37 | EXP.ANES.I ---
[facility] Anesthesia Record Part I Anesthesia Record I Intake, IV Amount: 1,000 Estimated blood loss (mL): 1,000 Urine output (mL): 250 Blood Pressure: 117/76 SaO2: 99 Pulse Rate: 79 Respiratory Rate: 16 Temperature: 98 F Patient is:: Awake and Stable Stable to PACU at:: 13:35 Comments:: tap block done per surgeon at end of case
--- NOTE | 2022-10-03 13:54 | EXP.OP.NOTE ---
Date of procedure: 10/03/22 Pre-op Diagnosis:: Term , breech presentation, oligohydramnios, irregular heartbeat Post-op Diagnosis:: Term , breech presentation, oligohydramnios, irregular heartbeat Procedure performed:: Primary lower segment transverse section Surgeon:: Nigel Ward MD Direct Mail Coordinator(s):: Dr. Mckeon CASE COORDINATOR:: Other (Maryse Jackson) Anesthesia: spinal Estimated blood loss (mL): 1,000 Clinical Note:: She is a 26-year-old 3 para 1 aborta 1 who was 38+ weeks gestational age. She was scheduled for a next week due to breech presentation. She was seen yesterday for an ultrasound and the biopsy profile was 6 of 8. There is no breathing movement seen. The nonstress test that we did showed that the baby had an irregular heartbeat. Ultrasound showed oligohydramnios with an amniotic fluid max of 6.0 cm. As result of these findings we elected perform a primary lower segment transverse section. Operative findings:: She delivered a liveborn male child at 12:50 PM in the afternoon of October 02, 2022. The baby had Apgars of 9 at 1 minute 9 at 5 minutes. pH was 7.44. He was in the frederick breech presentation. The baby weighed 7 pounds 10 ounces. Operative note:: She was taken to the operating room where spinal anesthesia was found be adequate. She could still feel some discomfort along the incision so I injected approximately 30 cc of 1% Xylocaine subcutaneously prior to the incision. She was prepped and draped in normal sterile fashion in the supine position. A Archer catheter was in the bladder. A Pfannenstiel skin incision was made with knife then carried through to the underlying layer of fascia.. The fascia was opened in the midline with knife and extended laterally using Linares scissors. Calderon clamps were applied to the superior aspect of the fascial incision which was tented up and the underlying rectus muscles dissected off using cautery. The Boone clamps were then applied to the inferior aspect of the fascial incision which in a similar fashion was tented up and the underlying rectus muscles dissected off using cautery. The rectus muscles were then in the midline, the peritoneum identified, and entered bluntly. An Min retractor was then inserted into the abdominal cavity. A bladder flap was made with Metzenbaum scissors. Transverse incision was made through the uterine muscle above the bladder flap to the amnion. This incision was then extended superiorly and inferiorly using the fingers as traction. The amnion was entered sharply with knife. There was clear amniotic fluid. The 's breech was then delivered atraumatically. This was followed by the after coming shoulders and the after coming head. A loose nuchal cord was then reduced. The oropharynx and nasopharynx were bulb suctioned. The was vigorous so we allowed the cord to continue to pulsate for approximately 1 minute. The cord was then doubly clamped and cut. The infant was then handed off to Dr. Russell who assigned Apgars of 9 at 1 minute and 9 at 5 minutes. We then obtained cord blood. The pH was 7.44. Using gentle traction on the cord and fundal massage I was able to easily deliver the placenta intact. It had a normal three-vessel cord. There was bleeding from each lateral edge of the uterus and sponge forceps were used to obtain hemostasis. The uterus was then cleared of clots and debris . The corners of the uterine incision were then closed with interrupted [id number]-cvyoa Vicryl suture. This obtained excellent hemostasis. The uterine incision was then closed using running 0 Vicryl suture in a locked fashion. A second layer of the same suture was used to imbricate the first layer. The bladder peritoneum was then closed using running 2-0 Vicryl suture in a locked fashion. The gutters and cul-de-sac were then cleared of clots and debris . Once again hemostasis was assured. The fascia wa
--- NOTE | 2022-10-03 14:53 | SUR.OPER ---
1250- TOB of viable male . PH-7.44
--- NOTE | 2022-10-04 08:43 | EXP.ACUTE.PN ---
Subjective *Date: 10/04/22 *Time: 07:15 Interval history: She is doing well this morning. Her hemoglobin is 8.0. We will go ahead and give her Venofer this morning. She otherwise feels well. Her pain is reasonably well controlled. She is bottlefeeding. Medical Exam Vital signs and Labs for Last 24 Hours: Vital Signs Temp Pulse Pulse Pulse Resp BP BP 10/03/22 20:15 99.1 F 92 H 19 96/62 L 10/03/22 14:05 97.0 F L 80 18 10/03/22 14:00 70 18 10/03/22 13:55 73 18 10/03/22 13:50 73 18 10/03/22 13:45 71 18 10/03/22 13:40 79 18 10/03/22 13:35 97.0 F L 77 18 10/03/22 13:39 98 F 79 16 117/76 10/03/22 13:39 98 F 79 16 117/76 BP Pulse Ox 10/03/22 20:15 98 10/03/22 14:05 120/68 99 10/03/22 14:00 130/76 99 10/03/22 13:55 127/78 100 10/03/22 13:50 116/80 100 10/03/22 13:45 125/71 100 10/03/22 13:40 111/81 99 10/03/22 13:35 117/76 98 10/03/22 13:39 10/03/22 13:39 Intake and Output 10/03/22 10/04/22 10/04/22 19:59 03:59 11:59 Intake Total 1999 Output Total 700 / 700 Balance 1999 -700 / 1300 Intake: Intake, Total IV Amount 1999 Output: Output, Urine Amount (Catheter) 700 / 700 Archer 700 / 700 Other: Weight 199 lb Patient Weight 10/04/22 11:59 Weight 199 lb Laboratory Results - last 24 hr 10/02/22 17:25: Blood Type B Positive, Antibody Screen Negative, Crossmatch (AHG) See Detail 10/03/22 08:45: Sodium 135 L, Potassium 3.6, Chloride 106, Carbon Dioxide 24, Anion Gap 8.6, BUN 6 L, Creatinine 0.40 L, Estimated Creat Clear 306 H, Estimated GFR 194, Est GFR ( Amer) 235, Glucose 77, Calcium 8.4 10/03/22 09:05: Urine Color Yellow, Urine Appearance Clear, Urine pH 7.0, Ur Specific Frederick 1.020, Urine Protein Negative, Urine Glucose (UA) Negative, Urine Ketones Negative, Urine Blood Negative, Urine Nitrate Negative, Urine Bilirubin Negative, Urine Urobilinogen 1.0, Ur Leukocyte Esterase Negative, Urine RBC Occasional, Urine WBC 3-5, Ur Squamous Epith Cells 3-5, Urine Bacteria 1+, Urine Opiates Screen Negative, Urine Methadone Screen Negative, Ur Barbituates Screen Negative, Ur Phencyclidine Scrn Negative, Ur Amphetamines Screen Negative, U Benzodiazepines Scrn Negative, Urine Cocaine Screen Negative, U Marijuana (THC) Screen Negative 10/04/22 07:15: Hgb 8.0 L, Hct 25.0 L I & O for Labs for Last 24 Hours: Intake & Output 10/01/22 10/02/22 10/03/22 10/04/22 11:59 11:59 11:59 11:59 Intake Total 1999 / 1999 Output Total 700 / 700 Balance 1300 / 1300 Weight 199 lb 199 lb Head: Present atraumatic Neck: Present normal inspection Respiratory: Present normal respiratory effort; Absent accessory muscle use Assessment and Plan *Assessment and plan (1) Oligohydramnios antepartum: Status: Acute Qualifiers: Fetus number: single or unspecified fetus Qualified Code(s): O41.00X0 - Oligohydramnios, unspecified trimester, not applicable or unspecified Category: Medical Code(s): O41.00X0 - Oligohydramnios, unspecified trimester, not applicable or unspecified (2) Breech presentation at : Status: Acute Category: Medical Code(s): O32.1XX0 - Maternal care for breech presentation, not applicable or unspecified (3) Delivery by section using low vertical uterine incision: Status: Acute Category: Medical Code(s): O82 - Encounter for delivery without indication (4) Anemia-delivered w/ complication: Status: Acute Category: Medical Code(s): O99.03 - Anemia complicating the puerperium Plan We will go ahead and start Venofer this morning. We will give her 1 infusion of this prior to her going home. She is otherwise doing well. Her hemoglobin is 8.0 today. She should be able to go home tomorrow.
[2022-10-04 20:42] VITALS: BP 120/68; PULSE 100; RESP 18; TEMP 37; O2SAT 99
--- NOTE | 2022-10-05 08:26 | EXP.DC.SUM ---
General Admission date:: 10/02/22 Discharge date: 10/05/22 HPI HPI HPI: POD # 2 s/p PLTCS Resting comfortably in bed. Pain controlled. Light lochia. She is breast feeding. Voiding without difficulty and passing flatus. Tolerating regular diet. Ambulting well ad fatou. Denies fever/chills, chest pain and shortness of breath. No headaches or vision changes. Denies swelling. Hospital Course Hospital Course Hospital Course: She is a 26-year-old 3 para 1 at 38 weeks gestational age. She is known to have a breech presentation. This was confirmed yesterday at the time of ultrasound. She had mild oligohydramnios with an amniotic fluid index of 6 cm. At the time of her ultrasound there was no breathing movement seen. We took her upstairs for a nonstress test the baby was having an irregular heartbeat and it seemed to be skipping a beat every fourth beat. As result of the irregular heartbeat, lack of breathing movements and oligohydramnios we elected to admit her and perform a section. She also had a large mass on her right shoulder early in . 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 She underwent primary on 10/03/22. She delivered a live male baby weighing 7 lbs 10 oz. APGARS 9, 9. EBL 1000 mL. She received Venofer 200 mg IV x 1 dose on POD # 1. She did well postoperatively. Pain controlled. Light lochia. Voiding without difficulty and passing flatus. Tolerating regular diet. Vital signs stable, afebrile. Heart regular rate and rhythm. Lungs clear to auscultation. Abdomen soft, nontender. No lower extremity edema. Normal hospital course. Exam Data for Last 24 hours Vital signs and Labs for Last 24 Hours: Temp Pulse Resp BP Pulse Ox 98.6 F 100 H 18 120/68 99 10/04/22 20:42 10/04/22 20:42 10/04/22 20:42 10/04/22 20:42 10/04/22 20:42 I & O for Last 24 hours: Intake & Output 10/02/22 10/03/22 10/04/22 10/05/22 23:59 23:59 23:59 23:59 Intake Total 1999 / 1999 Output Total 700 / 700 Balance 1300 / 1300 Weight 199 lb 199 lb Constitutional Constitutional: no acute distress *Routine HEENT Exam Head: Present normocephalic and atraumatic Eye: Absent conjunctivae pink ENT: Present mucous membranes moist and dentition normal *Routine Neck Exam Neck: Present full ROM *Routine Respiratory Exam Respiratory: Present CTA bilaterally and normal respiratory effort *Routine Cardiovascular Exam Cardiovascular: Present RRR *Routine Abdominal Exam Abdominal: Present soft and normoactive bowel sounds; Absent tenderness or distended Comments: uterine fundus firm and below umbilicus, pfannenstiel incision clean/dry/intact *Routine Rectal Exam Patient deferred: visual exam *Routine Exam Patient deferred: external exam *Routine Extremities Exam Extremities: Present full ROM; Absent edema or calf tenderness *Routine Neurological Exam Neurological: Present alert, oriented X3 and moving all extremities Routine Psychiatric Exam Psychiatric: Present normal affect and cooperative DS: Diagnosis Discharge Diagnosis (1) Oligohydramnios antepartum: Status: Acute Code(s): O41.00X0 - Oligohydramnios, unspecified trimester, not applicable or unspecified Qualifiers: Fetus number: single or unspecified fetus Qualified Code(s): O41.00X0 - Oligohydramnios, unspecified trimester, not applicable or unspecified (2) Breech presentation at : Status: Acute Code(s): O32.1XX0 - Maternal care for breech presentation, not applicable or unspecified (3) Delivery by section using low vertical uterine incision: Status: Acute Code(s): O82 - Encounter for delivery without indication (4) Anemia-delivered w/ complication: Status: Acute Code(s): O99.03 - Anemia complicating the puerperium Meds Home Medications and Allergies Home Medications Medication
[2022-10-08 08:20] VITALS: BP 120/68; PULSE 80; TEMP 36.1
--- NOTE | 2022-10-08 08:20 | P.PNANES_ITS ---
[facility] Anesthesia Record Part II Anesthesia Record Part II Discharge Time: 14:05 Destination: Obstetric Gynecology Dept PACU nurse assessment reviewed?: Yes Patient Condition:: Good Anesthesia Complications:: None Swallowing reflex intact?: Yes Cyanosis?: No Blood Pressure: 120/68 Pulse Rate: 80 Temperature: 97 F Mental Status: Alert & Oriented Pain level:: 0 Nausea and/or vomitting:: None Intake, IV Amount: 0
== END 2022-10-05 11:57 | disposition home or self-care (01) | DRG 787 ==
LOC: OBOUT 17:23 → OB 17:23
PROVIDERS: Admitting Provider Nurse Practitioner Obstetrics & Gynecology; PCP Nurse Practitioner Family; Visit Provider Nurse Practitioner Obstetrics & Gynecology
PROC: 10D00Z1 Extraction of Products of Conception, Low, Open Approach (ICD-10-PCS; CPT 59514; principal; 2022-10-03 12:00)
DX: O41.03X0 Oligohydramnios, third trimester, not applicable or unspecified (principal); C49.10 Malignant neoplasm of connective and soft tissue of unspecified upper limb, including shoulder; Z3A.38 38 weeks gestation of pregnancy; Z37.0 Single live birth; O32.1XX0 Maternal care for breech presentation, not applicable or unspecified; O76 Abnormality in fetal heart rate and rhythm complicating labor and delivery; O90.81 Anemia of the puerperium
CPT/HCPCS: 59514; 36415; 59025; 76816; 76819; 80048; 80305; 81001; 82800; 85014; 85018; 85025; 86850; 94761; C9290; G0283; J1756; J2405

== ENCOUNTER 2022-10-21 18:36 | Inpatient (IN) | payer OTHER, SELFPAY ==
[2022-10-21] VITALS (10 sets, daily range): BP systolic 112–135; BP diastolic 51–73; PULSE 78–132; RESP 15–22; TEMP 37.1–38; O2SAT 96–100; BMI 26.3; BMI 25.8
--- NOTE | 2022-10-21 18:51 | EXP.UTC ---
Discharge Plan Disposition Patient Disposition: Still a Patient Condition: Fair Prescriptions Prescriptions: No Action [id number]-oxs-Mf-FA 1 mg Tablet 1 tab PO DAILY oxycodone 5 mg Tablet 5 mg PO Q4HP PRN (Reason: Moderate To Severe Pain (4-10)) Qty: 20 0RF ibuprofen 800 mg tablet 800 mg PO Q8H PRN (Reason: pain) Qty: 20 0RF polyethylene glycol 3350 [Miralax] 17 gram/dose powder 17 g PO BID PRN (Reason: constipation) Qty: 238 0RF Referrals Follow up/Referrals: Megan Sin APRN [Primary Care Provider] - See instructions Clinical Impressions Clinical Impression: Chest pain, Status post Discharge ED Provider: Diogo Paris [facility] General Stated complaint: back pain,fever Time Seen by Provider: 10/21/22 18:51 History of Present Illness Provider Complaint: She states that for the past 1 day she has had fever, chest pain and back pain. She had a 3 weeks ago. She denies any urinary complaints. Related Data Home Medications Medication Instructions Recorded Confirmed [id number] 1 mg 1 tab PO DAILY Supplement 03/14/22 10/18/22 tablet Previous Rx's Medication Instructions Recorded ibuprofen 800 mg tablet 800 mg PO Q8H PRN pain #20 tabs 10/05/22 oxycodone 5 mg tablet 5 mg PO Q4HP PRN Moderate To 10/05/22 Severe Pain (4-10) #20 tabs polyethylene glycol 3350 17 17 g PO BID PRN constipation #238 10/05/22 gram/dose oral powder (Miralax) grams Allergies Allergy/AdvReac Type Severity Reaction Status Date / Time No Known Allergies Allergy Verified 10/18/22 13:49 [facility] Disclaimer: The information contained in this section may have been updated after the patient was seen, as this information can be updated by other users. 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 Surgical History Hx of surgical biopsy Family History Other Family history of cancer Family history of diabetes mellitus Lung cancer Social History Smoking Status: Never smoker alcohol intake: never substance use type: denies use current occupational status: employed Travel in the last 8 weeks: None caffeine: Yes ROS Obtained: Yes All systems reviewed & no additional complaints except as documented Constitutional Constitutional: Denies chills and Denies fever(s) Eyes Eyes: Denies eye discharge ENT Ears, Nose, Mouth, and Throat: Denies dizziness, Denies otalgia and Denies sore throat Cardiovascular Cardiovascular: Reports as per HPI and Reports chest pain Respiratory Respiratory: Denies shortness of breath, Denies chest congestion, Denies cough, Denies stridor and Denies wheezing Gastrointestinal Gastrointestingal: Denies nausea or vomiting Musculoskeletal Musculoskeletal: Reports as per HPI and Reports back pain Integumentary/Breasts Skin/Breast: Denies rash Neurologic Neurologic: Denies dizziness and Denies paresthesias Allergic/Immunologic Allergic/Immunologic: Denies wheezing Physical Exam General General appearance: alert and in no apparent distress Head Head exam: atraumatic, normocephalic and normal inspection Eye Eye exam: Present normal appearance, PERRL and EOMI ENT ENT exam: Present normal exam, normal oropharynx, mucous membranes moist, TM's normal bilaterally and normal external ear exam Neck Neck exam: Present normal inspection, full ROM and trachea midline; Absent meningismus or lymphadenopathy Chest Chest inspection: Present normal inspection and symmetric chest wall rise; Absent tenderness Respiratory Respiratory exam: Present normal lung sounds bilaterally; Absent respiratory distress
--- NOTE | 2022-10-21 18:59 | HMH.EDGENADL ---
Discharge Plan Disposition Patient Disposition: Admitted Condition: Fair Clinical Impressions Clinical Impression: Loculated pleural effusion, Status post , History of sarcoma Discharge ED Provider: Phillip Garcia General Adult HPI General Chief complaint: Chest Pain Stated complaint: back pain,fever Time Seen by Provider: 10/21/22 18:59 Mode of Arrival: Ambulatory Source of Information: Patient Limitations: No Limitations Description of Symptoms (Recalled from ER Triage Doc. by RN): Patient reports having a csection 3 weeks ago and now is unable to take a deep breath without intense pain, has a fever and intense back pain that she feels is related to her spinal she received for her c section. History of Present Illness HPI narrative: Patient is a 27-year-old female here with pleuritic chest pain and midline lumbar spine back pain. She is 3 weeks from a . She also states she recently had extensive surgery [facility] getting a sarcoma removed from her right shoulder and right mid back. She is scheduled for radiation at the end of this month. She is not on chemotherapy. She developed a fever today to 101.5 has not had any antipyretics since that time. She describes the pain as being central to her chest with deep inspiration and she is short of breath as a result of this. She has had some discomfort in her left medial aspect of her thigh but she just thought that was normal. This is new different pain that she previously had. She denies any lower extremity swelling or history of DVT or PE. She is not on any anticoagulants or antiplatelet agents. She denies any respiratory symptoms any sore throat any urinary symptoms from an infectious standpoint. Related Data Home Medications Medication Instructions Recorded Confirmed vuklkkpj-ecv-Lx-FA 1 mg 1 tab PO DAILY Supplement 03/14/22 10/18/22 tablet Previous Rx's Medication Instructions Recorded ibuprofen 800 mg tablet 800 mg PO Q8H PRN pain #20 tabs 10/05/22 oxycodone 5 mg tablet 5 mg PO Q4HP PRN Moderate To 10/05/22 Severe Pain (4-10) #20 tabs polyethylene glycol 3350 17 17 g PO BID PRN constipation #238 10/05/22 gram/dose oral powder (Miralax) grams Allergies Allergy/AdvReac Type Severity Reaction Status Date / Time No Known Allergies Allergy Verified 10/21/22 19:32 [facility] Disclaimer: The information contained in this section may have been updated after the patient was seen, as this information can be updated by other users. 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 Surgical History Hx of surgical biopsy Family History Other Family history of cancer Family history of diabetes mellitus Lung cancer Social History Smoking Status: Never smoker alcohol intake: never substance use type: denies use current occupational status: employed Travel in the last 8 weeks: None caffeine: Yes ROS Obtained: Yes All systems reviewed & no additional complaints except as documented Physical Exam General General appearance: alert and in no apparent distress Respiratory Respiratory exam: Present normal lung sounds bilaterally (Lung sounds normal in the upper lung field several lower lung field she is not moving much air secondary to pain) and other (Oxygen saturation 99% on room air); Absent wheezes or accessory muscle use Cardiovascular Cardiovascular exam: Present tachycardia Abdominal Exam Abdominal exam: Present soft; Absent distention or tenderness Back Exam Back exam: Present tenderness (Midline lumbar spine) Neurological Exam Neurological exam: Present
--- NOTE | 2022-10-21 19:08 | CT_ITS ---
PROCEDURE INFORMATION: Exam: CT Lumbar Spine Without Contrast Exam date and time: 10/21/2022 7:31 PM Age: 27 years old Clinical indication: Low back pain; Prior surgery; Surgery date: <1 month; Surgery type: PT had 3 weeks ago; Additional info: Midline L spine pain TECHNIQUE: Imaging protocol: Computed tomography of the lumbar spine without contrast. Radiation optimization: All CT scans at this facility use at least one of these dose optimization techniques: automated exposure control; mA and/or kV adjustment per patient size (includes targeted exams where dose is matched to clinical indication); or iterative reconstruction. REPORTING DATA: Count of CT and Cardiac NM exams in prior 12 months: This patient has received 0 known CTs and 0 known cardiac nuclear medicine studies in the 12 months prior to the current study. COMPARISON: ABDPELW/O CT ABD PELVIS W/O CONTRAST 12/19/2016 8:07 PM FINDINGS: Bones/joints: No acute fracture. Normal alignment. No significant disc bulge or herniation. No severe spinal canal stenosis. No significant neural foraminal narrowing. Soft tissues: Unremarkable. IMPRESSION: No acute findings.
--- NOTE | 2022-10-21 19:08 | CT_ITS ---
PROCEDURE INFORMATION: Exam: CTA Chest Without And With Contrast Exam date and time: 10/21/2022 7:34 PM Age: 27 years old Clinical indication: Dyspnea; Prior surgery; Surgery date: <1 month; Surgery type: x 3 weeks ago. Sarcoma removed from right shoulder April 2022; Additional info: 3 wks post op, h/o sarcoma, dyspnea pleuritic cp TECHNIQUE: Imaging protocol: Computed tomographic angiography of the chest without and with contrast. Exam focused on the arteries. 3D rendering (Not supervised by radiologist): MIP and/or 3D reconstructed images were created by the technologist. Radiation optimization: All CT scans at this facility use at least one of these dose optimization techniques: automated exposure control; mA and/or kV adjustment per patient size (includes targeted exams where dose is matched to clinical indication); or iterative reconstruction. Contrast material: ISOVEU 370; Contrast volume: 70 ml; Contrast route: INTRAVENOUS (IV); REPORTING DATA: Count of CT and Cardiac NM exams in prior 12 months: This patient has received 0 known CTs and 0 known cardiac nuclear medicine studies in the 12 months prior to the current study. COMPARISON: MR SHOULDER RT WO CON 03/29/2022 12:55 PM FINDINGS: Pulmonary arteries: Normal. No pulmonary emboli. Aorta: Unremarkable. No aortic aneurysm. No aortic dissection. Lungs: Compressive subsegmental atelectasis of left lung. Right lung grossly clear. Pleural spaces: Large partially loculated left pleural effusion possibly parapneumonic. Smaller free fluid left pleural effusion Heart: Unremarkable. No cardiomegaly. No pericardial effusion. Lymph nodes: Unremarkable. No enlarged lymph nodes. Bones/joints: Postsurgical changes of right shoulder. Soft tissues: Unremarkable. IMPRESSION: 1. No central or segmental pulmonary arterial embolism by CT criteria. 2. Large partially loculated left pleural effusion possibly parapneumonic. Smaller free flowing left pleural effusion. 3. Postsurgical changes of the right shoulder.
[2022-10-21 19:28] LABS: Basophils % 0.2 % (0.1-2.0); Eosinophils # 0.1 K/mm3 (0.0-0.4); Hematocrit 33.4 % (37.0-47.0); Hemoglobin 10.2 g/dL (12.2-16.2); Lymphocytes # 1.2 K/mm3 (0.7-4.5); Lymphocytes % 17.5 % (10-50); Mean Corpuscular HGB Conc 30.5 g/dL (31.8-35.4); Mean Corpuscular Hemoglobin 23.2 pg (27.0-31.2); Mean Corpuscular Volume 75.9 fl (81-99); Mean Platelet Volume 9.6 fl (7.4-10.4); Monocytes # 0.4 K/mm3 (0.1-1.0); Monocytes % 6.1 % (1.7-9.3); Neutrophils # 5.1 K/mm3 (1.8-7.8); Neutrophils % 75.2 % (37.0-80.0); Platelet Count 363 K/mm3 (142-424); Red Cell Distribution Width 15.8 % (11.5-17.5); White Blood Count 6.7 K/mm3 (4.8-10.8)
[2022-10-21 19:33] LABS: Chloride 104 mmol/L (98-107); Potassium 3.7 mmoL/L (3.5-5.1); Sodium 138 mmol/L (136-145)
[2022-10-21 19:34] LABS: HCG Qualitative, Serum Negative (Negative)
[2022-10-21 19:35] LABS: Alanine Aminotransferase 18 U/L (12-78); Aspartate Amino Transferase 24 U/L (14-36); Bilirubin,Total 0.5 mg/dl (0.2-1.3); Blood Urea Nitrogen 2 mg/dl (7-17); Creatinine Clearance Estimated 211 mL/min (50-200); Estimated Glomerular Filt Rate 149 ml/min (>60); GFR (African American) 180 ML/MIN (>60)
[2022-10-21 19:36] LABS: Albumin Level 4.2 g/dl (3.5-5.0); Albumin/Globulin Ratio 1.2 (1.1-1.8); Alkaline Phosphatase 163 U/L (38-126); Anion Gap 11.7 mEq/L (5-15); Calcium 9.3 mg/dl (8.4-10.2); Carbon Dioxide 26 mmol/L (22.0-30.0); Globulin 3.6 g/dL (1.3-3.2); Glucose 97 mg/dl (74-100); Total Protein,Serum 7.8 g/dl (6.3-8.2)
[2022-10-21 19:51] LABS: Troponin I < 0.01 ng/ml (0.00-0.034)
--- NOTE | 2022-10-21 19:54 | PC.NURSE ---
Pt provided with ice water
--- NOTE | 2022-10-21 20:16 | PC.NURSE ---
Second set of cultures and urine collected
--- NOTE | 2022-10-21 20:16 | PC.NURSE ---
spoke with pulmonology
[2022-10-21 20:17] LABS: Microscopic, Urine URINE MICROSCOPIC (MICROSCOPIC)
[2022-10-21 20:34] LABS: Appearance,Urine CLEAR (Clear); Bilirubin,Urine Negative (Negative); Blood, Urine 2+ (Negative); Color,Urine YELLOW (Yellow); Glucose,Urine (UA) Negative (Negative); Ketones,Urine Negative (Negative); Leukocyte Esterase,Urine Negative (Negative); Nitrate,Urine Negative (Negative); Protein,Urine Negative (Negative); Specific Gravity, Urine <= 1.005 (1.005-1.030)
[2022-10-21 20:55] LABS: Bacteria,Urine Trace /lpf; RBC,Urine Occasional #/hpf (0-3); Squamous Epithelial Cell,Urine Occasional #/hpf (0-5); WBC,Urine Occasional #/hpf (0-3)
--- NOTE | 2022-10-21 21:02 | PC.NURSE ---
PATIENT ADMITTED TO [facility] TO SERVICE OF HOSPITALIST WITH DX OF PLEURAL EFFUSION.
--- NOTE | 2022-10-21 21:11 | PC.NURSE ---
Dr Garcia informed pt that she would be getting her chest tube in the morning. pt verbalized understanding.
--- NOTE | 2022-10-21 21:11 | PC.NURSE ---
Hospitalist at bedside
[2022-10-21 21:13] LABS: Coronavirus 19, PCR Not Detected (NotDetected); Influenza A, PCR Not Detected (NotDetected); Influenza B, PCR Not Detected (NotDetected)
[2022-10-21 21:16] LABS: Lactate Dehydrogenase 508 U/L (313-618)
--- NOTE | 2022-10-21 21:20 | ECG_ITS ---
APPROVED REPORT Exam: Resting ECG HR:108 bpm ECG Measurements Heart Rate 108 AXES NC 130 P 49 QRSd 73 QRS 61 QT 301 T 35 QTc 364 Conclusion SINUS TACHYCARDIA NONSPECIFIC ST & T-WAVE ABNORMALITY ABNORMAL RHYTHM ECG UNCONFIRMED REPORT Electronically signed by : Bassam Cam MD 10/22/2022 07:09:49
--- NOTE | 2022-10-21 21:36 | EXP.HP ---
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 Patient came today with pleuritic chest pain and midline lumbar spine back pain. She is scheduled for radiation at the end of this month. She is not on chemotherapy. She developed a fever today to 101.5 has not had any antipyretics since that time. She describes the pain as being central to her chest with deep inspiration and she is short of breath as a result of this. She has had some discomfort in her left medial aspect of her thigh but she just thought that was normal. This is new different pain that she previously had. She denies any lower extremity swelling or history of DVT or PE. She is not on any anticoagulants or antiplatelet agents. She denies any respiratory symptoms any sore throat any urinary symptoms from an infectious standpoint. Patient to be admitted for further treatment and management. [facility] Disclaimer: The information contained in this section may have been updated after the patient was seen, as this information can be updated by other users. 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 Surgical History (Updated 10/21/22 @ 18:57 by Diogo Paris APRN) Hx of surgical biopsy Family History Other Family history of cancer Family history of diabetes mellitus Lung cancer Social History (Updated 10/21/22 @ 22:32 by Aury Russell RN) Smoking Status: Never smoker alcohol intake: never substance use type: denies use current occupational status: employed Travel in the last 8 weeks: None caffeine: Yes Review of Systems Review of Systems Review of systems:: pertinent systems reviewed and negative unless documented below ENT Ears, Nose, Mouth, and Throat: Denies dizziness *Neurologic Neurologic: Denies dizziness and Denies paresthesias Meds Home Medications and Allergies Home Medications Medication Instructions Recorded Confirmed Type oxycodone 5 mg tablet 5 mg PO Q4HP PRN Moderate To 10/05/22 10/21/22 Rx Severe Pain (4-10) #20 tabs acetaminophen 500 mg tablet 500 mg PO Q4H PRN Pain 10/22/22 10/22/22 History New Prescriptions to Start Prescriptions: Allergies Allergy/AdvReac Type Severity Reaction Status Date / Time No Known Allergies Allergy Verified 10/21/22 19:32 Exam Data for Last 24 hours Vital signs and Labs for Last 24 Hours: Temp Pulse Resp BP Pulse Ox O2 Del Method 99.9 F H 107 H 15 118/67 98 Room Air 10/21/22 19:10 10/21/22 21:01 10/21/22 21:01 10/21/22 21:01 10/21/22 21:01 10/21/22 21:01 Laboratory Results - last 24 hr 10/21/22 19:13: WBC 6.7, RBC 4.40, Hgb 10.2 L, Hct 33.4 L, MCV 75.9 L, MCH 23.2 L, MCHC 30.5 L, RDW 15.8, Plt Count 363, MPV 9.6, Neut % (Auto) 75.2, Lymph % (Auto) 17.5, [place] % (Auto) 6.1, Eos % (Auto) 1.0, Baso % (Auto) 0.2, Neut # (Auto) 5.1, Lymph # (Auto) 1.2, [place] # (Auto) 0.4, Eos # (Auto) 0.1, Baso # (Auto) 0.0, Sodium 138, Potassium 3.7, Chloride 104, Carbon Dioxide 26, Anion Gap 11.7, BUN 2 L, Creatinine 0.50 L, Estimated Creat Clear 211, Estimated GFR 149, Est GFR ( Amer) 180, Glucose 97, Lactate 1.0, Calcium 9.3, Total Bilirubin 0.5, AST 24, ALT 18, Alkaline Phosphatase 163 H, Lactate Dehydrogenase 508, Troponin I < 0.01, Total Protein 7.8, Albumin 4.2, Globulin 3.6 H, Albumin/Globulin Ratio 1.2, Serum HCG, Qual Negative 10/21/22 20:07: Urine Color Yellow, Urine Appea
--- NOTE | 2022-10-21 22:09 | PC.NURSE ---
report given to Maribeth ALBRIGHT
[2022-10-21 22:50] LABS: Troponin I < 0.01 ng/ml (0.00-0.034)
[2022-10-22] VITALS (9 sets, daily range): BP systolic 99–119; BP diastolic 47–72; PULSE 96–120; RESP 13–19; TEMP 36.8–38.1; O2SAT 94–99; BMI 25.8
[2022-10-22 02:37] LABS: Basophils % 0.2 % (0.1-2.0); Eosinophils # 0.1 K/mm3 (0.0-0.4); Eosinophils % 1.6 % (0.1-12.0); Hematocrit 30.2 % (37.0-47.0); Hemoglobin 9.3 g/dL (12.2-16.2); Lymphocytes # 0.8 K/mm3 (0.7-4.5); Lymphocytes % 11.2 % (10-50); Mean Corpuscular HGB Conc 30.8 g/dL (31.8-35.4); Mean Corpuscular Hemoglobin 23.5 pg (27.0-31.2); Mean Corpuscular Volume 76.2 fl (81-99); Mean Platelet Volume 9.2 fl (7.4-10.4); Monocytes # 0.3 K/mm3 (0.1-1.0); Monocytes % 3.6 % (1.7-9.3); Neutrophils % 83.4 % (37.0-80.0); Platelet Count 334 K/mm3 (142-424); Red Blood Count 3.97 M/mm3 (4.20-5.40); White Blood Count 7.1 K/mm3 (4.8-10.8)
[2022-10-22 02:39] LABS: Chloride 103 mmol/L (98-107)
[2022-10-22 02:40] LABS: Sodium 137 mmol/L (136-145)
[2022-10-22 02:42] LABS: Alanine Aminotransferase 15 U/L (12-78); Aspartate Amino Transferase 26 U/L (14-36); Blood Urea Nitrogen 3 mg/dl (7-17); Creatinine Clearance Estimated 173 mL/min (50-200); Estimated Glomerular Filt Rate 121 ml/min (>60); GFR (African American) 146 ML/MIN (>60); Potassium 3.9 mmoL/L (3.5-5.1)
[2022-10-22 02:43] LABS: Albumin Level 3.3 g/dl (3.5-5.0); Alkaline Phosphatase 139 U/L (38-126); Anion Gap 9.9 mEq/L (5-15); Bilirubin,Total 0.7 mg/dl (0.2-1.3); Carbon Dioxide 28 mmol/L (22.0-30.0); Globulin 3.2 g/dL (1.3-3.2); Glucose 116 mg/dl (74-100); Total Protein,Serum 6.5 g/dl (6.3-8.2)
[2022-10-22 02:56] LABS: Troponin I < 0.01 ng/ml (0.00-0.034)
--- NOTE | 2022-10-22 08:00 | HMH.PHAINT1 ---
Pharmacy Intervention Comments: Patient's home medications were reviewed and verified by patient. -Piotr Major, PharmD student
--- NOTE | 2022-10-22 08:08 | PC.NURSE ---
patient resting quietly in bed.
--- NOTE | 2022-10-22 08:24 | EXP.PHA.CONS ---
Pharmacy Consult Date: 10/22/22 Time: 08:24 Referring provider: GENARO Reason for Consult:: PHARMACY TO DOSE AND MANAGE VANCOMYCIN THERAPY Allergies Allergy/AdvReac Type Severity Reaction Status Date / Time No Known Allergies Allergy Verified 10/21/22 19:32 Home Medications Medication Instructions Recorded Confirmed Type oxycodone 5 mg tablet 5 mg PO Q4HP PRN Moderate To 10/05/22 10/21/22 Rx Severe Pain (4-10) #20 tabs acetaminophen 500 mg tablet 500 mg PO Q4H PRN Pain 10/22/22 10/22/22 History New Prescriptions to Start Prescriptions: Height: 1.73 m Weight: 77.252 kg Laboratory Results:: Laboratory Results - last 24 hr 10/21/22 19:13: WBC 6.7, RBC 4.40, Hgb 10.2 L, Hct 33.4 L, MCV 75.9 L, MCH 23.2 L, MCHC 30.5 L, RDW 15.8, Plt Count 363, MPV 9.6, Neut % (Auto) 75.2, Lymph % (Auto) 17.5, [place] % (Auto) 6.1, Eos % (Auto) 1.0, Baso % (Auto) 0.2, Neut # (Auto) 5.1, Lymph # (Auto) 1.2, [place] # (Auto) 0.4, Eos # (Auto) 0.1, Baso # (Auto) 0.0, Sodium 138, Potassium 3.7, Chloride 104, Carbon Dioxide 26, Anion Gap 11.7, BUN 2 L, Creatinine 0.50 L, Estimated Creat Clear 211, Estimated GFR 149, Est GFR ( Amer) 180, Glucose 97, Lactate 1.0, Calcium 9.3, Total Bilirubin 0.5, AST 24, ALT 18, Alkaline Phosphatase 163 H, Lactate Dehydrogenase 508, Troponin I < 0.01, Total Protein 7.8, Albumin 4.2, Globulin 3.6 H, Albumin/Globulin Ratio 1.2, Serum HCG, Qual Negative 10/21/22 20:07: Urine Color Yellow, Urine Appearance Clear, Urine pH 5.0, Ur Specific [place] <= 1.005, Urine Protein Negative, Urine Glucose (UA) Negative, Urine Ketones Negative, Urine Blood 2+, Urine Nitrate Negative, Urine Bilirubin Negative, Urine Urobilinogen 1.0, Ur Leukocyte Esterase Negative, Urine RBC Occasional, Urine WBC Occasional, Ur Squamous Epith Cells Occasional, Urine Bacteria Trace 10/21/22 21:08: SARS-CoV-2 (PCR) Not detected, Influenza A Untype (PCR) Not detected, Influenza Type B (PCR) Not detected 10/21/22 22:10: Troponin I < 0.01 10/22/22 02:20: WBC 7.1, RBC 3.97 L, Hgb 9.3 L, Hct 30.2 L, MCV 76.2 L, MCH 23.5 L, MCHC 30.8 L, RDW 16.0, Plt Count 334, MPV 9.2, Neut % (Auto) 83.4 H, Lymph % (Auto) 11.2, [place] % (Auto) 3.6, Eos % (Auto) 1.6, Baso % (Auto) 0.2, Neut # (Auto) 6.0, Lymph # (Auto) 0.8, [place] # (Auto) 0.3, Eos # (Auto) 0.1, Baso # (Auto) 0.0, Sodium 137, Potassium 3.9, Chloride 103, Carbon Dioxide 28, Anion Gap 9.9, BUN 3 L D, Creatinine 0.60, Estimated Creat Clear 173, Estimated GFR 121, Est GFR ( Amer) 146, Glucose 116 H, Calcium 8.0 L, Total Bilirubin 0.7, AST 26, ALT 15, Alkaline Phosphatase 139 H, Total Protein 6.5, Albumin 3.3 L D, Globulin 3.2, Albumin/Globulin Ratio 1.0 L 10/22/22 02:25: Troponin I < 0.01 Medical History: Medical History (Updated 10/21/22 @ 21:11 by Phillip Garcia MD) Delivery by section using low vertical uterine incision No significant past medical history 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 PHARMACY CONSULTED TO DOSE VANCOMYCIN FOR POSSIBLE PNEUMONITIS PER Phillip VICENTE MD. PT RECEIVED ONE DOSE ZOSYN 3.375GM IN ER AND ONE DOSE OF VANCOMYCIN 1500MG IN ER. WILL CONTINUE VANCOMYCIN 1500MG Q8H THIS AM. PHARMACY WILL MONITOR DAILY LONG PT IS ON VANCOMYCIN
--- NOTE | 2022-10-22 09:08 | EXP.PULM.CON ---
History of Present Illness History of present illness: Ms. 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 [facility] Disclaimer: The information contained in this section may have been updated after the patient was seen, as this information can be updated by other users. 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 Surgical History (Updated 10/21/22 @ 18:57 by Diogo Paris APRN) Hx of surgical biopsy Family History Other Family history of cancer Family history of diabetes mellitus Lung cancer Social History (Updated 10/21/22 @ 22:32 by Aury Russell RN) Smoking Status: Never smoker alcohol intake: never substance use type: denies use current occupational status: employed Travel in the last 8 weeks: None caffeine: Yes Review of Systems Constitutional Constitutional: Denies anorexia, Denies body ache(s) and Reports fatigue Eyes Eyes: Denies eye discharge, Denies dry eyes, Denies irritation and Denies itchy eyes ENT Ears, Nose, Mouth, and Throat: Denies dizziness, Denies lip swelling and Denies throat swelling *Cardiovascular Cardiovascular: Reports dyspnea on exertion *Respiratory Respiratory: Denies chest congestion, Denies cough, Reports dyspnea on exertion, Denies excessive phlegm production, Reports pain with cough and Denies wheezing *Gastrointestinal Gastrointestinal: Denies abdominal pain, Denies belching and Denies cramping *Musculoskeletal Musculoskeletal: Reports back pain, Reports myalgias and Reports other (No small joint swelling or Pain) *Neurologic Neurologic: Denies dizziness and Denies paresthesias Psychiatric Psychiatric: Denies homicidal ideation and Denies suicidal ideation Endocrine Endocrine: Reports fatigue and Denies heat intolerance Hematologic/Lymphatic Hematologic/Lymphatic: Denies easy bleeding and Denies lymphadenopathy Allergic/Immunologic Allergic/Immunologic: Denies itchy eyes, Denies lip swelling, Denies throat swelling and Denies wheezing Pulmonology Exam Inpatient Vital signs and Labs for Last 24 Hours: Temp Pulse Resp BP Pulse Ox O2 Del Method FiO2 98.7 F 101 H 19 119/72 97 Room Air 98 10/22/22 07:28 10/22/22 08:00 10/22/22 08:00 10/22/22 08:00 10/22/22 08:00 10/22/22 08:00 10/21/22 23:15 Laboratory Results - last 24 hr 10/21/22 19:13: WBC 6.7, RBC 4.40, Hgb 10.2 L, Hct 33.4 L, MCV 75.9 L, MCH 23.2 L, MCHC 30.5 L, RDW 15.8, Plt Count 363, MPV 9.6, Neut % (Auto) 75.2, Lymph % (Auto) 17.5, [place] % (Auto) 6.1, Eos % (Auto) 1.0, Baso % (Auto) 0.2, Neut # (Auto) 5.1, Lymph # (Auto) 1.2, [place] # (Auto) 0.4, Eos # (Auto) 0.1, Baso # (Auto) 0.0, Sodium 138, Potassium 3.7, Chloride 104, Carbon Dioxide 26, Anion Gap 11.7, BUN 2 L, Creatinine 0.50 L, Estimated Creat Clear 211, Estimated GFR 149, Est GFR ( Amer) 180, Glucose 97, Lactate 1.0, Calcium 9.3, Total Bilirubin 0.5, AST 24, ALT 18, Alkaline Phosphatase 163 H, Lactate Dehydrogenase 508, Troponin I < 0.01, Total Protein 7.8, Albumin 4.2, Globulin 3.6 H, Albumin/Globulin Ratio 1.2, Serum HCG, Qual Negative 10/21/22 20:07: Urine Color Yellow, Urine Appearance Clear, Urine pH 5.0, Ur Specific [place] <= 1.005, Urine Protein Negative, Urine Glucose (UA) Negative, Urine Ketones Negative, Urine Blood 2+, Urine Nitrate Negative, Urine Bilirubin Negative, Urine Urobilinogen 1.0, Ur Leukocyte Esterase Negative, Urine RBC Occasional, Urine WBC Occasional, Ur Squamous
--- NOTE | 2022-10-22 10:46 | US_ITS ---
FINAL REPORT TECHNIQUE: Sonographic imaging of the left chest was obtained. CLINICAL HISTORY: pleural effusion FINDINGS: There is a small left pleural effusion. A rounded area of heterogeneous echogenicity is seen measuring 8.8 cm. Doppler imaging reveals blood flow to be present which is suggestive of solid mass. IMPRESSION: 8.8 cm soft tissue mass in the lower left chest surrounded by small amount of pleural fluid. Metastatic sarcoma not excluded. Reviewed, Interpreted and Dictated by Jelly Nix MD Transcribed by Rosemarie Swartz Authenticated and [facility]
[2022-10-22 11:45] LABS: Lactate Dehydrogenase 412 U/L (313-618)
--- NOTE | 2022-10-22 14:59 | EXP.PN ---
Subjective *Date: 10/22/22 *Time: 14:59 Interval history: no acute events overnight no shortness of breath Exam Data for Last 24 hours Vital signs and Labs for Last 24 Hours: Temp Pulse Resp BP Pulse Ox O2 Del Method FiO2 99.2 F 101 H 19 119/72 96 Room Air 98 10/22/22 11:16 10/22/22 08:00 10/22/22 08:00 10/22/22 08:00 10/22/22 08:00 10/22/22 14:44 10/21/22 23:15 Laboratory Results - last 24 hr 10/21/22 19:13: WBC 6.7, RBC 4.40, Hgb 10.2 L, Hct 33.4 L, MCV 75.9 L, MCH 23.2 L, MCHC 30.5 L, RDW 15.8, Plt Count 363, MPV 9.6, Neut % (Auto) 75.2, Lymph % (Auto) 17.5, [place] % (Auto) 6.1, Eos % (Auto) 1.0, Baso % (Auto) 0.2, Neut # (Auto) 5.1, Lymph # (Auto) 1.2, [place] # (Auto) 0.4, Eos # (Auto) 0.1, Baso # (Auto) 0.0, Sodium 138, Potassium 3.7, Chloride 104, Carbon Dioxide 26, Anion Gap 11.7, BUN 2 L, Creatinine 0.50 L, Estimated Creat Clear 211, Estimated GFR 149, Est GFR ( Amer) 180, Glucose 97, Lactate 1.0, Calcium 9.3, Total Bilirubin 0.5, AST 24, ALT 18, Alkaline Phosphatase 163 H, Lactate Dehydrogenase 508, Troponin I < 0.01, Total Protein 7.8, Albumin 4.2, Globulin 3.6 H, Albumin/Globulin Ratio 1.2, Serum HCG, Qual Negative 10/21/22 20:07: Urine Color Yellow, Urine Appearance Clear, Urine pH 5.0, Ur Specific [place] <= 1.005, Urine Protein Negative, Urine Glucose (UA) Negative, Urine Ketones Negative, Urine Blood 2+, Urine Nitrate Negative, Urine Bilirubin Negative, Urine Urobilinogen 1.0, Ur Leukocyte Esterase Negative, Urine RBC Occasional, Urine WBC Occasional, Ur Squamous Epith Cells Occasional, Urine Bacteria Trace 10/21/22 21:08: SARS-CoV-2 (PCR) Not detected, Influenza A Untype (PCR) Not detected, Influenza Type B (PCR) Not detected 10/21/22 22:10: Troponin I < 0.01 10/22/22 02:20: WBC 7.1, RBC 3.97 L, Hgb 9.3 L, Hct 30.2 L, MCV 76.2 L, MCH 23.5 L, MCHC 30.8 L, RDW 16.0, Plt Count 334, MPV 9.2, Neut % (Auto) 83.4 H, Lymph % (Auto) 11.2, [place] % (Auto) 3.6, Eos % (Auto) 1.6, Baso % (Auto) 0.2, Neut # (Auto) 6.0, Lymph # (Auto) 0.8, [place] # (Auto) 0.3, Eos # (Auto) 0.1, Baso # (Auto) 0.0, Sodium 137, Potassium 3.9, Chloride 103, Carbon Dioxide 28, Anion Gap 9.9, BUN 3 L D, Creatinine 0.60, Estimated Creat Clear 173, Estimated GFR 121, Est GFR ( Amer) 146, Glucose 116 H, Calcium 8.0 L, Total Bilirubin 0.7, AST 26, ALT 15, Alkaline Phosphatase 139 H, Lactate Dehydrogenase 412, Total Protein 6.5, Albumin 3.3 L D, Globulin 3.2, Albumin/Globulin Ratio 1.0 L 10/22/22 02:25: Troponin I < 0.01 I & O for Last 24 hours: Intake & Output 10/19/22 10/20/22 10/21/22 10/22/22 23:59 23:59 23:59 23:59 Intake Total 1000 / 1000 590 / 590 Output Total 300 / 600 575 / 575 Balance 700 / 400 Weight 77.252 kg 77.252 kg Constitutional Constitutional: no acute distress *Routine HEENT Exam Head: Present normocephalic Eye: Present EOMI and PERRL ENT: Present mucous membranes moist *Routine Neck Exam Neck: Present supple; Absent lymphadenopathy *Routine Respiratory Exam Respiratory: Present CTA bilaterally *Routine Cardiovascular Exam Cardiovascular: Present RRR *Routine Abdominal Exam Abdominal: Present soft and normoactive bowel sounds; Absent tenderness *Routine Extremities Exam Extremities: Absent cyanosis, clubbing or edema *Routine Skin Exam Skin: Present warm; Absent rash *Routine Neurological Exam Neurological: Present alert and oriented X3 Assessment and Plan *Assessment and plan (1) Loculated pleural effusion: Status: Acute Category: Medical Code(s): J90 - Pleural effusion, not elsewhere classified (2) History of sarcoma: Status: Acute Category: Medical Code(s): Z85.831 - Personal history of malignant neoplasm of soft tissue (3) Anemia-delivered w/ complication: Status: Acute Category: Medical Code(s): O99.03 - Anemia complicating the puerperium (4) Status post : Status: Acute Category: Surgical
--- NOTE | 2022-10-22 17:55 | ECG_ITS ---
APPROVED REPORT Exam: Resting ECG HR:127 bpm ECG Measurements Heart Rate 127 AXES NV 145 P 30 QRSd 72 QRS 20 QT 335 T 22 QTc [address] DEVIATION AND MODERATE T-WAVE ABNORMALITY, CONSIDER ANTEROLATERAL ISCHEMIA [-0.1+ mV T-WAVE IN V3-V6] ABNORMAL ECG UNCONFIRMED REPORT Electronically signed by : Bassam Cam MD 10/24/2022 21:24:46
--- NOTE | 2022-10-22 18:04 | PC.NURSE ---
Called Dr. Baptiste, pt HR 120-130's. New orders given.
[2022-10-23] VITALS (22 sets, daily range): BP systolic 102–132; BP diastolic 39–66; PULSE 91–130; RESP 18–24; TEMP 37–39.5; O2SAT 88–99; BMI 26.9
[2022-10-23 06:20] LABS: Basophils % 0.2 % (0.1-2.0); Eosinophils # 0.2 K/mm3 (0.0-0.4); Eosinophils % 2.6 % (0.1-12.0); Hematocrit 26.9 % (37.0-47.0); Hemoglobin 8.3 g/dL (12.2-16.2); Lymphocytes # 0.9 K/mm3 (0.7-4.5); Lymphocytes % 14.9 % (10-50); Mean Corpuscular HGB Conc 31.1 g/dL (31.8-35.4); Mean Corpuscular Hemoglobin 23.7 pg (27.0-31.2); Mean Corpuscular Volume 76.4 fl (81-99); Mean Platelet Volume 9.5 fl (7.4-10.4); Monocytes # 0.5 K/mm3 (0.1-1.0); Monocytes % 8.1 % (1.7-9.3); Neutrophils # 4.7 K/mm3 (1.8-7.8); Neutrophils % 74.3 % (37.0-80.0); Platelet Count 279 K/mm3 (142-424); Red Blood Count 3.52 M/mm3 (4.20-5.40); Red Cell Distribution Width 15.8 % (11.5-17.5); White Blood Count 6.3 K/mm3 (4.8-10.8)
[2022-10-23 06:32] LABS: Anion Gap 8.7 mEq/L (5-15); Blood Urea Nitrogen 11 mg/dl (7-17); Calcium 8.5 mg/dl (8.4-10.2); Carbon Dioxide 29 mmol/L (22.0-30.0); Chloride 104 mmol/L (98-107); Creatinine Clearance Estimated 180 mL/min (50-200); Estimated Glomerular Filt Rate 121 ml/min (>60); GFR (African American) 146 ML/MIN (>60); Glucose 96 mg/dl (74-100); Potassium 3.7 mmoL/L (3.5-5.1); Sodium 138 mmol/L (136-145)
--- NOTE | 2022-10-23 09:06 | PC.NURSE ---
[address] Baptiste via phone. pt requesting pain and nausea meds. pt zofran is not able to be given for another hour, may dose be given early? per Dr Baptiste ok to give zofran early at this time.
--- NOTE | 2022-10-23 09:09 | PC.NURSE ---
0855 Pt has lovenox ordered at this time, pt is scheduled for a Bronchoscopy. Does MD want pt to received lovenox at this time? Per Dr Becerra, hold lovenox.
--- NOTE | 2022-10-23 10:00 | EXP.PULM.PN ---
Subjective *Date: 10/23/22 *Time: 10:00 Interval history: No acute respiratory events overnight. Patient denies any new respiratory complaints. Complaining of left-sided pleuritic chest pain and low back pain. Pulmonology Exam Inpatient Vital signs and Labs for Last 24 Hours: Temp Pulse Resp BP Pulse Ox O2 Del Method FiO2 99.4 F 110 H 13 102/54 L 94 L Room Air 95 10/23/22 07:55 10/23/22 08:00 10/22/22 20:00 10/23/22 03:28 10/23/22 03:28 10/23/22 06:42 10/22/22 20:00 Laboratory Results - last 24 hr 10/22/22 02:20: Lactate Dehydrogenase 412 10/23/22 05:34: WBC 6.3, RBC 3.52 L, Hgb 8.3 L, Hct 26.9 L, MCV 76.4 L, MCH 23.7 L, MCHC 31.1 L, RDW 15.8, Plt Count 279, MPV 9.5, Neut % (Auto) 74.3, Lymph % (Auto) 14.9, [place] % (Auto) 8.1, Eos % (Auto) 2.6, Baso % (Auto) 0.2, Neut # (Auto) 4.7, Lymph # (Auto) 0.9, [place] # (Auto) 0.5, Eos # (Auto) 0.2, Baso # (Auto) 0.0, Sodium 138, Potassium 3.7, Chloride 104, Carbon Dioxide 29, Anion Gap 8.7, BUN 11 D, Creatinine 0.60, Estimated Creat Clear 180, Estimated GFR 121, Est GFR ( Amer) 146, Glucose 96, Calcium 8.5 10/23/22 07:52: Vancomycin Trough 5.0 I & O for Labs for Last 24 Hours: Intake & Output 10/20/22 10/21/22 10/22/22 10/23/22 23:59 23:59 23:59 23:59 Intake Total 1000 / 1000 1350 / 1350 340 / 340 Output Total 300 / 600 575 / 575 0 / 0 Balance 700 / 400 775 / 775 340 / 340 Weight 170 lb 5 oz 170 lb 5 oz 177 lb 6.4 oz Constitutional: Present mild distress Head: Present normocephalic and atraumatic ENT: Present normal exam, normal oropharynx and mucous membranes moist Neck: Present normal inspection and full ROM Respiratory: Present able to speak in complete sentences; Absent respiratory distress, rhonchi, wheezes or crackles Comment:: Decreased breath sounds left lower lung mitchell Cardiac: Present S1/S2, Tachycardia and radial pulses present GI: Present soft and distention; Absent tenderness or guarding Rectal (female): Present deferred (female): Present deferred Skin: Present intact; Absent cyanosis or jaundice Neuro: Present alert, awake and oriented x 3 Extremities: Present normal inspection; Absent clubbing or cyanosis Psychiatric: Present normal affect and cooperative Assessment and Plan *Assessment and plan (1) Dyspnea on exertion: Status: Acute Category: Medical Code(s): R06.09 - Other forms of dyspnea (2) Pleural effusion, left: Status: Acute Category: Medical Code(s): J90 - Pleural effusion, not elsewhere classified (3) Mass of left lung: Status: Acute Category: Medical Code(s): R91.8 - Other nonspecific abnormal finding of lung field Plan Ms. 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 CTA upon his admission no evidence of pulmonary embolism noted, reported to be having dense loculated left pleural however upon ultrasound noted to have left lower lobe large lung mass with vascularity. Very small adjacent free-flowing pleural effusion with pleural irregularity noted which is not amendable for thoracentesis at this point of time. Patient Scheduled for bronchoscopy transbronchial biopsy today. Patient continued to be on room air since admission. Plan: -Wean antibiotics to Augmentin to complete a total of 7-day course. -Bronchoscopy transbronchial biopsy scheduled for this afternoon. N.p.o. and hold prophylactic anticoagulation Thank you for involving pulmonary in this patient care. We will continue to follow.
--- NOTE | 2022-10-23 12:18 | PC.NURSE ---
Addendum entered by Heidi Galicia RN 10/23/22 13:22: 1241 pt returned to floor r/t still being febrile Original Note: pt off unit with Leela from Pre-op 1217
--- NOTE | 2022-10-23 12:18 | PC.NURSE ---
[address] Becerra that pt had oral temp of 103.1. pt had previously been medicated at 1036 with lortab 5/325mg 2 tablets. will recheck temp in [address] Baptiste face to face that pt had oral temp of 103.1. pt had previously been medicated at 1036 with lortab 5/325mg 2 tablets. will recheck temp in 1 hour. 1141 temp rechecked per md request. 99.[address] Becerra notified. nno
--- NOTE | 2022-10-23 12:38 | PC.NURSE ---
216 refused a rectal temp let nurse know
--- NOTE | 2022-10-23 16:13 | EXP.PN ---
Subjective *Date: 10/23/22 *Time: 16:13 Interval history: she spiked a fever earlier today as high as 103.5 degrees F she continues to have left lower back pain, but pain is currently in control she denies chest pain or shortness of breath Exam Data for Last 24 hours Vital signs and Labs for Last 24 Hours: Temp Pulse Resp BP Pulse Ox O2 Del Method FiO2 100.3 F H 122 H 20 106/62 L 91 L Room Air 95 10/23/22 15:26 10/23/22 13:00 10/23/22 13:00 10/23/22 13:00 10/23/22 13:00 10/23/22 15:00 10/22/22 20:00 Laboratory Results - last 24 hr 10/23/22 05:34: WBC 6.3, RBC 3.52 L, Hgb 8.3 L, Hct 26.9 L, MCV 76.4 L, MCH 23.7 L, MCHC 31.1 L, RDW 15.8, Plt Count 279, MPV 9.5, Neut % (Auto) 74.3, Lymph % (Auto) 14.9, [place] % (Auto) 8.1, Eos % (Auto) 2.6, Baso % (Auto) 0.2, Neut # (Auto) 4.7, Lymph # (Auto) 0.9, [place] # (Auto) 0.5, Eos # (Auto) 0.2, Baso # (Auto) 0.0, Sodium 138, Potassium 3.7, Chloride 104, Carbon Dioxide 29, Anion Gap 8.7, BUN 11 D, Creatinine 0.60, Estimated Creat Clear 180, Estimated GFR 121, Est GFR ( Amer) 146, Glucose 96, Calcium 8.5 10/23/22 07:52: Vancomycin Trough 5.0 I & O for Last 24 hours: Intake & Output 10/20/22 10/21/22 10/22/22 10/23/22 23:59 23:59 23:59 23:59 Intake Total 1000 / 1000 1350 / 1350 340 / 340 Output Total 300 / 600 575 / 575 0 / 0 Balance 700 / 400 775 / 775 340 / 340 Weight 77.252 kg 77.252 kg 80.467 kg Constitutional Constitutional: no acute distress *Routine HEENT Exam Head: Present normocephalic Eye: Present EOMI and PERRL ENT: Present mucous membranes moist *Routine Neck Exam Neck: Present supple; Absent lymphadenopathy *Routine Respiratory Exam Comments: decreased breath sounds left lower lung field *Routine Cardiovascular Exam Cardiovascular: Present RRR *Routine Abdominal Exam Abdominal: Present soft and normoactive bowel sounds; Absent tenderness *Routine Extremities Exam Extremities: Absent cyanosis, clubbing or edema *Routine Skin Exam Skin: Present warm; Absent rash *Routine Neurological Exam Neurological: Present alert and oriented X3 Assessment and Plan *Assessment and plan (1) History of sarcoma: Status: Acute Category: Medical Code(s): Z85.831 - Personal history of malignant neoplasm of soft tissue (2) Anemia-delivered w/ complication: Status: Acute Category: Medical Code(s): O99.03 - Anemia complicating the puerperium (3) Status post : Status: Acute Category: Surgical Code(s): Z98.891 - History of uterine scar from previous surgery (4) Mass of left lung: Status: Acute Category: Medical Code(s): R91.8 - Other nonspecific abnormal finding of lung field Plan Ms. 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 She presented to the er on 10/21 with pleuritic chest pain and lower back pain and also reported fever 101.5 degrees F. CTA chest without pulmonary embolism with dense loculated pleural effusion in the left lower lobe with adjacent atelectasis, new compared to ct chest from 06/2022. US Chest reveals 8.8cm soft tissue mass in the lower left chest surrounded by small amount of pleural fluid. metastatic sarcoma is not excluded. #left sided lung mass #acute pneumonia #anemia Really appreciate Pulmonology's service. Continuing Zosyn. Vancomycin was discontinued on 10/22. plan for bronchoscopy with biopsy tomorrow dvt ppx: hold lovenox for procedure tomorrow Full code
[2022-10-24] VITALS (24 sets, daily range): BP systolic 96–135; BP diastolic 49–83; PULSE 87–120; RESP 11–26; TEMP 36.1–38.8; O2SAT 92–97; BMI 26.9
[2022-10-24 05:45] LABS: Basophils % 0.2 % (0.1-2.0); Eosinophils # 0.2 K/mm3 (0.0-0.4); Eosinophils % 2.6 % (0.1-12.0); Hematocrit 26.1 % (37.0-47.0); Lymphocytes # 0.8 K/mm3 (0.7-4.5); Lymphocytes % 14.4 % (10-50); Mean Corpuscular HGB Conc 30.5 g/dL (31.8-35.4); Mean Corpuscular Hemoglobin 23.2 pg (27.0-31.2); Mean Platelet Volume 9.5 fl (7.4-10.4); Monocytes # 0.5 K/mm3 (0.1-1.0); Monocytes % 7.8 % (1.7-9.3); Neutrophils # 4.4 K/mm3 (1.8-7.8); Platelet Count 299 K/mm3 (142-424); Red Blood Count 3.43 M/mm3 (4.20-5.40); Red Cell Distribution Width 15.5 % (11.5-17.5); White Blood Count 5.8 K/mm3 (4.8-10.8)
[2022-10-24 05:55] LABS: Anion Gap 7.4 mEq/L (5-15); Blood Urea Nitrogen 10 mg/dl (7-17); Calcium 8.4 mg/dl (8.4-10.2); Carbon Dioxide 30 mmol/L (22.0-30.0); Chloride 103 mmol/L (98-107); Creatinine Clearance Estimated 180 mL/min (50-200); Estimated Glomerular Filt Rate 121 ml/min (>60); GFR (African American) 146 ML/MIN (>60); Glucose 100 mg/dl (74-100); Potassium 3.4 mmoL/L (3.5-5.1); Sodium 137 mmol/L (136-145)
--- NOTE | 2022-10-24 08:41 | EXP.PULM.PN ---
Subjective *Date: 10/24/22 *Time: 09:05 Interval history: No acute respiratory events overnight Pulmonology Exam Inpatient Vital signs and Labs for Last 24 Hours: Temp Pulse Resp BP Pulse Ox O2 Del Method FiO2 98.4 F 107 H 16 101/53 L 97 Room Air 98 10/24/22 07:27 10/24/22 08:00 10/24/22 08:00 10/24/22 08:00 10/24/22 08:20 10/24/22 08:20 10/24/22 04:00 Laboratory Results - last 24 hr 10/24/22 05:25: WBC 5.8, RBC 3.43 L, Hgb 8.0 L, Hct 26.1 L, MCV 76.0 L, MCH 23.2 L, MCHC 30.5 L, RDW 15.5, Plt Count 299, MPV 9.5, Neut % (Auto) 75.0, Lymph % (Auto) 14.4, [place] % (Auto) 7.8, Eos % (Auto) 2.6, Baso % (Auto) 0.2, Neut # (Auto) 4.4, Lymph # (Auto) 0.8, [place] # (Auto) 0.5, Eos # (Auto) 0.2, Baso # (Auto) 0.0, Sodium 137, Potassium 3.4 L, Chloride 103, Carbon Dioxide 30, Anion Gap 7.4, BUN 10, Creatinine 0.60, Estimated Creat Clear 180, Estimated GFR 121, Est GFR ( Amer) 146, Glucose 100, Calcium 8.4 I & O for Labs for Last 24 Hours: Intake & Output 10/21/22 10/22/22 10/23/22 10/24/22 23:59 23:59 23:59 23:59 Intake Total 1000 / 1000 1350 / 1350 920 / 920 580 / 580 Output Total 300 / 600 575 / 575 200 / 200 300 / 300 Balance 700 / 400 775 / 775 720 / 720 280 / 280 Weight 170 lb 5 oz 170 lb 5 oz 177 lb 6.4 oz 177 lb 4 oz Microbiology Reports for the Last 24 Hours: Microbiology 10/21/22 20:10 Blood Blood Culture - Preliminary NO GROWTH AFTER 48 HOURS 10/21/22 19:13 Blood Blood Culture - Preliminary NO GROWTH AFTER 48 HOURS Constitutional: Present mild distress Head: Present normocephalic and atraumatic ENT: Present normal exam, normal oropharynx and mucous membranes moist Neck: Present normal inspection and full ROM Respiratory: Present able to speak in complete sentences; Absent respiratory distress, rhonchi, wheezes or crackles Comment:: Decreased breath sounds left lower lung mit[place] Cardiac: Present S1/S2, Tachycardia and radial pulses present GI: Present soft and distention; Absent tenderness or guarding Rectal (female): Present deferred (female): Present deferred Skin: Present intact; Absent cyanosis or jaundice Neuro: Present alert, awake and oriented x 3 Extremities: Present normal inspection; Absent clubbing or cyanosis Psychiatric: Present normal affect and cooperative Assessment and Plan *Assessment and plan (1) Dyspnea on exertion: Status: Acute Category: Medical Code(s): R06.09 - Other forms of dyspnea (2) Pleural effusion, left: Status: Acute Category: Medical Code(s): J90 - Pleural effusion, not elsewhere classified (3) Mass of left lung: Status: Acute Category: Medical Code(s): R91.8 - Other nonspecific abnormal finding of lung field Plan Ms. 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 CTA upon his admission no evidence of pulmonary embolism noted, reported to be having dense loculated left pleural however upon ultrasound noted to have left lower lobe large lung mass with vascularity. Very small adjacent free-flowing pleural effusion with pleural irregularity noted which is not amendable for thoracentesis at this point of time. Patient continued to be on room air since admission. Interval update Patient was scheduled for bronchoscopy yesterday however has high-grade fevers at 103 and procedure was aborted. Patient had a low-grade fever this morning likely tomorrow. We will proceed with bronchoscopy. Hypokalemia with serum potassium 3.4. Replete 20 IV and 20 oral. Chest x-ray from this morning, no new pulmonary infiltrates. Continue to show left pleural effusion. Plan: - Replet
--- NOTE | 2022-10-24 08:42 | XR_ITS ---
FINAL REPORT CLINICAL HISTORY: Hypoxia - fever FINDINGS: A single PA view of the chest was obtained. There is no prior exam for comparison. The cardiac and mediastinal silhouettes are within normal limits. There is left perihilar and left basilar opacity with a left pleural effusion, this could represent pneumonia although this patient is known to have a left lower lung mass. There is no pneumothorax. IMPRESSION: Left lung opacity and left pleural effusion. Pneumonia is not excluded. Radiographic follow-up is recommended. Reviewed, Interpreted and Dictated by Jelly Nix MD Transcribed by Lois Hope Authenticated and [facility]
--- NOTE | 2022-10-24 10:20 | PC.NURSE ---
18G Left AC started leaking and burning per pt report (IV potassium going at that time), removed that IV and charge out clerkNATALEE Espinoza started new 20G in left wrist
--- NOTE | 2022-10-24 11:33 | PC.NURSE ---
courtesy tech lilian: pt is sitting up in bed with no requests voiced at this time.
--- NOTE | 2022-10-24 11:50 | PC.NURSE ---
pt off floor, pt went for bronchoscopy with surgery staff
--- NOTE | 2022-10-24 12:04 | EXP.ANES.CKL ---
[facility] Disclaimer: The information contained in this section may have been updated after the patient was seen, as this information can be updated by other users. Medical History (Updated 10/23/22 @ 10:02 by Rosa Becerra MD) Delivery by section using low vertical uterine incision Dyspnea on exertion Mass of left lung No significant past medical history Pleural effusion, left Soft tissue neoplasm Soft tissue sarcoma of shoulder Surgical History Hx of surgical biopsy Family History Other Family history of cancer Family history of diabetes mellitus Lung cancer Social History Smoking Status: Never smoker alcohol intake: never substance use type: denies use current occupational status: employed Travel in the last 8 weeks: None caffeine: Yes [facility] Anesthesia Checklist Patient Identification Patient Identification: Arm Band and Verbal (Name & ) Structural Data Admitted From: Inpatient Planned Operative Procedure/s: Bronchoscopy Consent for Planned Operative Procedure(s) Verified: Yes NPO Status Verified Time NPO: 00:00 Chart Verification Results Verified: CBC and BMP Airway Assessment C-Spine Mobility Assessed: Yes TMJ Mobility Assessed: Yes Dentition: Good Dentition Neurological Assessment Level of Consciousness: Awake Hx Seizures: No Numbness or tingling in extremities: No Anesthesia Plan Anesthesia Risk discussed: Yes Anesthesia Plan: Verified ASA Class: III Anesthesia Type: General
--- NOTE | 2022-10-24 12:51 | EXP.ANES.CKL ---
[facility] Disclaimer: The information contained in this section may have been updated after the patient was seen, as this information can be updated by other users. Medical History (Updated 10/23/22 @ 10:02 by Rosa Becerra MD) Delivery by section using low vertical uterine incision Dyspnea on exertion Mass of left lung No significant past medical history Pleural effusion, left Soft tissue neoplasm Soft tissue sarcoma of shoulder Surgical History Hx of surgical biopsy Family History Other Family history of cancer Family history of diabetes mellitus Lung cancer Social History Smoking Status: Never smoker alcohol intake: never substance use type: denies use current occupational status: employed Travel in the last 8 weeks: None caffeine: Yes [facility] Anesthesia Checklist Patient Identification Patient Identification: Verbal (Name & ) Structural Data Admitted From: Inpatient Planned Operative Procedure/s: bronchoscopy Consent for Planned Operative Procedure(s) Verified: Yes Airway Assessment C-Spine Mobility Assessed: Yes TMJ Mobility Assessed: Yes Dentition: Good Dentition Neurological Assessment Level of Consciousness: Awake, Alert and Appropriate Anesthesia Plan Anesthesia Risk discussed: Yes Anesthesia Plan: Verified ASA Class: III Anesthesia Type: General
--- NOTE | 2022-10-24 13:45 | XR_ITS ---
FINAL REPORT CLINICAL HISTORY: BRONC WITH BIOPSY FINDINGS: FLUOROSCOPY HISTORY: Fluoroscopy guided injection. FINDINGS: Fluoroscopic guidance was provided for bronchoscopy. A single spot film was obtained. 3 minutes and 47 seconds of fluoroscopy time were used. IMPRESSION: Fluoroscopy as above. Reviewed, Interpreted and Dictated by Jelly Nix MD Transcribed by Ivanna Du Authenticated and [facility]
--- NOTE | 2022-10-24 13:53 | P.PNANES_ITS ---
[facility] Anesthesia Record Part I Anesthesia Record I Intake, IV Amount: 1,000 Estimated blood loss (mL): 0 Urine output (mL): 0 Blood Pressure: 124/83 SaO2: 92 Pulse Rate: 117 Respiratory Rate: 12 Temperature: 97.8 F Patient is:: Awake and Stable Stable to PACU at:: 13:50
--- NOTE | 2022-10-24 14:30 | PC.NURSE ---
pt back to floor from bronch, pt's family at bedside call light within reach
--- NOTE | 2022-10-24 16:05 | PC.NURSE ---
courtesy tech round: pt is sitting up in the bed watching TV. call light is within reach and no needs are voiced at this time.
--- NOTE | 2022-10-24 17:08 | EXP.BRONCH.N ---
Procedure: Date: 10/24/22 Patient Date of :: 1995 Procedure Performed:: Bronchoscopy airway examination, bronchoalveolar lavage and transbronchial lung biopsy: Indications:: Lung mass Performing Provider:: Rosa Becerra MD Referring Provider:: Negro Baptiste MD Sedation:: General anesthesia Procedure:: Bronchoscopy airway examination, bronchoalveolar lavage and transbronchial lung biopsy: A clean THEREPEAUTIC bronchoscopy was advanced through the ET tube and airways were examined up to subsegmental bronchi. Airways appeared grossly normal, no evidence of mucoid secretions, mucous plugging active bleeding/old blood clots noted. No obvious endobronchial lesions noted. During the procedure given difficulties advancing therapeutic bronchoscopy that was exchanged with a diagnostic bronchoscopy and airway examination was performed again. No evidence of endobronchial lesions noted upon repeat examination with diagnostic bronchoscopy. Bronchoalveolar lavage was performed in the LEFT LOWER LOBE with instillation of 60 cc normal saline with return of 20 cc back. BAL fluid was sent for bacterial culture along with cytopathology. Transbronchial biopsy was performed in the LEFT LOWER LOBE with a total of 5 biopsies performed, 5 biopsy specimens were sent in formalin for cytopathologic examination. Patient tolerated the procedure with no immediate acute complications. We will follow the patient in pulmonary clinic in 7 to 10 days. Findings:: Please see the procedure note Recommendations:: Follow-up final results. Follow-up with oncology as an outpatient basis please schedule appointment prior to patient discharge Complications:: No acute immediate complications. Estimated blood obtained (mL): 5
--- NOTE | 2022-10-24 17:52 | EXP.PN ---
Subjective *Date: 10/24/22 *Time: 17:52 Interval history: No acute events overnight. Exam Data for Last 24 hours Vital signs and Labs for Last 24 Hours: Temp Pulse Resp BP Pulse Ox O2 Del Method O2 Flow Rate 98.7 F 113 H 17 126/67 97 Room Air 2 10/24/22 14:30 10/24/22 17:30 10/24/22 17:30 10/24/22 17:30 10/24/22 17:30 10/24/22 17:30 10/24/22 15:00 FiO2 98 10/24/22 04:00 Laboratory Results - last 24 hr 10/24/22 05:25: WBC 5.8, RBC 3.43 L, Hgb 8.0 L, Hct 26.1 L, MCV 76.0 L, MCH 23.2 L, MCHC 30.5 L, RDW 15.5, Plt Count 299, MPV 9.5, Neut % (Auto) 75.0, Lymph % (Auto) 14.4, Shannon % (Auto) 7.8, Eos % (Auto) 2.6, Baso % (Auto) 0.2, Neut # (Auto) 4.4, Lymph # (Auto) 0.8, Shannon # (Auto) 0.5, Eos # (Auto) 0.2, Baso # (Auto) 0.0, Sodium 137, Potassium 3.4 L, Chloride 103, Carbon Dioxide 30, Anion Gap 7.4, BUN 10, Creatinine 0.60, Estimated Creat Clear 180, Estimated GFR 121, Est GFR ( Amer) 146, Glucose 100, Calcium 8.4 I & O for Last 24 hours: Intake & Output 10/21/22 10/22/22 10/23/22 10/24/22 23:59 23:59 23:59 23:59 Intake Total 1000 / 1000 1350 / 1350 920 / 920 1580 / 1580 Output Total 300 / 600 575 / 575 200 / 200 300 / 300 Balance 700 / 400 775 / 775 720 / 720 1280 / 1280 Weight 77.252 kg 77.252 kg 80.467 kg 80.399 kg Microbiology Reports for the Last 24 Hours: Microbiology 10/21/22 20:10 Blood Blood Culture - Preliminary NO GROWTH AFTER 48 HOURS 10/21/22 19:13 Blood Blood Culture - Preliminary NO GROWTH AFTER 48 HOURS Constitutional Constitutional: no acute distress *Routine HEENT Exam Head: Present normocephalic Eye: Present EOMI and PERRL ENT: Present mucous membranes moist *Routine Neck Exam Neck: Present supple; Absent lymphadenopathy *Routine Respiratory Exam Comments: decreased breath sounds left lower lung field *Routine Cardiovascular Exam Cardiovascular: Present RRR *Routine Abdominal Exam Abdominal: Present soft and normoactive bowel sounds; Absent tenderness *Routine Extremities Exam Extremities: Absent cyanosis, clubbing or edema *Routine Skin Exam Skin: Present warm; Absent rash *Routine Neurological Exam Neurological: Present alert and oriented X3 Assessment and Plan *Assessment and plan (1) History of sarcoma: Status: Acute Category: Medical Code(s): Z85.831 - Personal history of malignant neoplasm of soft tissue (2) Anemia-delivered w/ complication: Status: Acute Category: Medical Code(s): O99.03 - Anemia complicating the puerperium (3) Status post : Status: Acute Category: Surgical Code(s): Z98.891 - History of uterine scar from previous surgery (4) Mass of left lung: Status: Acute Category: Medical Code(s): R91.8 - Other nonspecific abnormal finding of lung field Plan Ms. 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 She presented to the er on 10/21 with pleuritic chest pain and lower back pain and also reported fever 101.5 degrees F. CTA chest without pulmonary embolism with dense loculated pleural effusion in the left lower lobe with adjacent atelectasis, new compared to ct chest from 06/2022. US Chest reveals 8.8cm soft tissue mass in the lower left chest surrounded by small amount of pleural fluid. metastatic sarcoma is not excluded. #left sided lung mass #acute pneumonia #anemia Continuing Zosyn. Vancomycin was discontinued on 10/22. The patient had a bronchoscopy, bronchoalveolar lavage and transbronchial lung biopsy earlier today. No obvious endobronchial lesions noted. During the procedure given difficu
[2022-10-24 21:11] LABS: Microscopic, Urine URINE MICROSCOPIC (MICROSCOPIC)
[2022-10-24 22:04] LABS: Appearance,Urine CLEAR (Clear); Bilirubin,Urine Negative (Negative); Blood, Urine 2+ (Negative); Color,Urine YELLOW (Yellow); Glucose,Urine (UA) Negative (Negative); Ketones,Urine Negative (Negative); Leukocyte Esterase,Urine Negative (Negative); Nitrate,Urine Negative (Negative); Protein,Urine Negative (Negative); Specific Gravity, Urine 1.015 (1.005-1.030); Urobilinogen,Urine 0.2 EU/dl (0.2)
[2022-10-24 23:11] LABS: WBC,Urine Occasional #/hpf (0-3)
[2022-10-25] VITALS: BP 125/67; PULSE 103; RESP 22; TEMP 36.8; O2SAT 90
[2022-10-25 04:00] VITALS: BP 101/63; PULSE 82; RESP 20; TEMP 36.9; O2SAT 90; BMI 27.6
[2022-10-25 06:28] LABS: Anion Gap 7.2 mEq/L (5-15); Blood Urea Nitrogen 11 mg/dl (7-17); Calcium 8.6 mg/dl (8.4-10.2); Carbon Dioxide 29 mmol/L (22.0-30.0); Chloride 105 mmol/L (98-107); Creatinine Clearance Estimated 278 mL/min (50-200); Estimated Glomerular Filt Rate 193 ml/min (>60); GFR (African American) 233 ML/MIN (>60); Glucose 118 mg/dl (74-100); Potassium 4.2 mmoL/L (3.5-5.1); Sodium 137 mmol/L (136-145)
[2022-10-25 08:00] VITALS: BP 119/70; PULSE 90; PULSE 94; RESP 16; TEMP 36.9; O2SAT 100
--- NOTE | 2022-10-25 08:37 | EXP.PHA.PN ---
Subjective *Date: 10/25/22 *Time: 08:37 Medical Exam Vital signs and Labs for Last 24 Hours: Vital Signs Temp Pulse Pulse Resp BP BP Pulse Ox 10/25/22 07:35 10/25/22 05:00 10/25/22 04:00 98.4 F 82 20 101/63 L 90 L 10/25/22 03:00 10/25/22 01:00 10/25/22 00:00 98.2 F 103 H 22 125/67 90 L 10/24/22 23:00 10/24/22 21:00 10/24/22 20:00 105 H 10/24/22 20:00 98.4 F 96 H 19 122/64 93 L 10/24/22 19:00 10/24/22 17:30 113 H 17 126/67 97 10/24/22 16:30 109 H 14 114/49 L 96 10/24/22 17:00 10/24/22 16:00 87 12 96/55 L 96 10/24/22 15:30 104 H 12 113/74 96 10/24/22 15:15 112 H 26 H 114/64 95 10/24/22 15:00 105 H 16 111/67 95 10/24/22 15:00 10/24/22 14:45 104 H 11 L 109/59 L 94 L 10/24/22 14:30 98.7 F 116 H 20 113/66 95 10/24/22 14:20 102 H 16 135/78 96 10/24/22 14:10 105 H 16 126/70 95 10/24/22 14:00 108 H 16 131/76 95 10/24/22 13:50 97.0 F L 115 H 16 124/72 94 L 10/24/22 11:04 99.2 F 10/24/22 11:00 94 H 14 110/55 L 93 L 10/24/22 10:22 10/24/22 10:00 96 H 16 102/66 L 94 L 10/24/22 13:54 97.8 F 117 H 12 124/83 O2 Del Method O2 Flow Rate 10/25/22 07:35 Room Air 10/25/22 05:00 Room Air 10/25/22 04:00 Room Air 10/25/22 03:00 Room Air 10/25/22 01:00 Room Air 10/25/22 00:00 Room Air 10/24/22 23:00 Room Air 10/24/22 21:00 Room Air 10/24/22 20:00 Room Air 10/24/22 20:00 Room Air 10/24/22 19:00 Room Air 10/24/22 17:30 Room Air 10/24/22 16:30 Room Air 10/24/22 17:00 Room Air 10/24/22 16:00 Room Air 10/24/22 15:30 Room Air 10/24/22 15:15 Room Air 10/24/22 15:00 Room Air 10/24/22 15:00 Nasal Cannula 2 10/24/22 14:45 Nasal Cannula 2 10/24/22 14:30 Nasal Cannula 2 10/24/22 14:20 Nasal Cannula 2 10/24/22 14:10 Nasal Cannula 2 10/24/22 14:00 Nasal Cannula 4 10/24/22 13:50 Nasal Cannula 4 10/24/22 11:04 10/24/22 11:00 Room Air 10/24/22 10:22 Room Air 10/24/22 10:00 Room Air 10/24/22 13:54 Intake and Output 10/24/22 10/25/22 10/25/22 23:59 07:59 15:59 Intake Total 0 / 1580 1572 / 1572 Output Total 400 / 700 0 / 0 Balance -400 / 880 1572 / 1572 Intake: Intake, Oral Amount 0 / 480 Intake, Other Amount 1572 / 1572 Output: Output, Urine Amount 400 / 700 0 / 0 Other: Number of Unmeasured Voids 1 1 Weight 82.508 kg Patient Weight 10/25/22 23:59 Weight 82.508 kg Laboratory Results - last 24 hr 10/24/22 20:00: Urine Color Yellow, Urine Appearance Clear, Urine pH 6.0, Ur Specific [place] 1.015, Urine Protein Negative, Urine Glucose (UA) Negative, Urine Ketones Negative, Urine Blood 2+, Urine Nitrate Negative, Urine Bilirubin Negative, Urine Urobilinogen 0.2, Ur Leukocyte Esterase Negative, Urine RBC 3-5, Urine WBC Occasional, Ur Squamous Epith Cells 3-5 10/25/22 05:45: Sodium 137, Potassium 4.2 D, Chloride 105, Carbon Dioxide 29, Anion Gap 7.2, BUN 11, Creatinine 0.40 L D, Estimated Creat Clear 278, Estimated GFR 193, Est GFR ( Amer) 233 D, Glucose 118 H, Calcium 8.6, Magnesium 2.0 I & O for Labs for Last 24 Hours: Intake & Output 10/22/22 10/23/22 10/24/22 10/25/22 23:59 23:59 23:59 23:59 Intake Total 1350 / 1350 920 / 920 1580 / 1580 1572 / 1572 Output Total 575 / 575 200 / 200 700 / 700 0 / 0 Balance 775 / 775 720 / 720 880 / 880 1572 / 1572 Weight 77.252 kg 80.467 kg 80.399 kg 82.508 kg The patient's infection will respond to the chosen ABx?: Yes Is the patient receiving the right drug, dose, and route?: Yes Could a more targeted ABx be ordered?: No
[2022-10-25 10:57] LABS: Hematocrit 24.6 % (37.0-47.0); Hemoglobin 7.3 g/dL (12.2-16.2); Mean Corpuscular Volume 79.1 fl (81-99); Red Blood Count 3.11 M/mm3 (4.20-5.40)
[2022-10-25 10:58] LABS: Basophils % 0.3 % (0.1-2.0); Lymphocytes # 0.5 K/mm3 (0.7-4.5); Lymphocytes % 6.6 % (10-50); Mean Corpuscular HGB Conc 29.7 g/dL (31.8-35.4); Mean Corpuscular Hemoglobin 23.5 pg (27.0-31.2); Mean Platelet Volume 12.4 fl (7.4-10.4); Monocytes # 0.5 K/mm3 (0.1-1.0); Monocytes % 7.6 % (1.7-9.3); Neutrophils % 85.1 % (37.0-80.0); Platelet Count 299 K/mm3 (142-424); Red Cell Distribution Width 14.4 % (11.5-17.5)
--- NOTE | 2022-10-25 10:58 | EXP.PULM.PN ---
Subjective *Date: 10/25/22 *Time: 12:36 Interval history: No acute respiratory vents overnight. Stable oxygen requirements. Pulmonology Exam Inpatient Vital signs and Labs for Last 24 Hours: Temp Pulse Resp BP Pulse Ox O2 Del Method O2 Flow Rate 98.4 F 94 H 16 119/70 100 Room Air 2 10/25/22 08:00 10/25/22 08:00 10/25/22 08:00 10/25/22 08:00 10/25/22 08:00 10/25/22 10:44 10/25/22 08:00 FiO2 98 10/24/22 04:00 Laboratory Results - last 24 hr 10/24/22 20:00: Urine Color Yellow, Urine Appearance Clear, Urine pH 6.0, Ur Specific [place] 1.015, Urine Protein Negative, Urine Glucose (UA) Negative, Urine Ketones Negative, Urine Blood 2+, Urine Nitrate Negative, Urine Bilirubin Negative, Urine Urobilinogen 0.2, Ur Leukocyte Esterase Negative, Urine RBC 3-5, Urine WBC Occasional, Ur Squamous Epith Cells 3-5 10/25/22 05:45: Sodium 137, Potassium 4.2 D, Chloride 105, Carbon Dioxide 29, Anion Gap 7.2, BUN 11, Creatinine 0.40 L D, Estimated Creat Clear 278, Estimated GFR 193, Est GFR ( Amer) 233 D, Glucose 118 H, Calcium 8.6, Magnesium 2.0 I & O for Labs for Last 24 Hours: Intake & Output 10/22/22 10/23/22 10/24/22 10/25/22 23:59 23:59 23:59 23:59 Intake Total 1350 / 1350 920 / 920 1580 / 1580 2051 Output Total 575 / 575 200 / 200 700 / 700 350 / 350 Balance 775 / 775 720 / 720 880 / 880 1702 / 1702 Weight 170 lb 5 oz 177 lb 6.4 oz 177 lb 4 oz 181 lb 14.4 oz Microbiology Reports for the Last 24 Hours: Microbiology 10/21/22 20:10 Blood Blood Culture - Preliminary NO GROWTH AFTER 48 HOURS 10/21/22 19:13 Blood Blood Culture - Preliminary NO GROWTH AFTER 48 HOURS Constitutional: Present mild distress Head: Present normocephalic and atraumatic ENT: Present normal exam, normal oropharynx and mucous membranes moist Neck: Present normal inspection and full ROM Respiratory: Present able to speak in complete sentences; Absent respiratory distress, rhonchi, wheezes or crackles Comment:: Decreased breath sounds left lower lung mitchell Cardiac: Present S1/S2, Tachycardia and radial pulses present GI: Present soft and distention; Absent tenderness or guarding Rectal (female): Present deferred (female): Present deferred Skin: Present intact; Absent cyanosis or jaundice Neuro: Present alert, awake and oriented x 3 Extremities: Present normal inspection; Absent clubbing or cyanosis Psychiatric: Present normal affect and cooperative Assessment and Plan *Assessment and plan (1) Dyspnea on exertion: Status: Acute Category: Medical Code(s): R06.09 - Other forms of dyspnea (2) Pleural effusion, left: Status: Acute Category: Medical Code(s): J90 - Pleural effusion, not elsewhere classified (3) Mass of left lung: Status: Acute Category: Medical Code(s): R91.8 - Other nonspecific abnormal finding of lung field Plan Ms. 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 CTA upon his admission no evidence of pulmonary embolism noted, reported to be having dense loculated left pleural however upon ultrasound noted to have left lower lobe large lung mass with vascularity. Very small adjacent free-flowing pleural effusion with pleural irregularity noted which is not amendable for thoracentesis at this point of time. Patient continued to be on room air since admission. Interval update No acute respiratory events overnight. Underwent bronchoscopy transbronchial biopsy. Afebrile in the last 24 hours. Continue to receive Zosyn. Repeat blood cultures pending. Urinalysis occasional WBC. No overt evidence of UTI. Plan: -Pa
[2022-10-25 10:59] LABS: White Blood Count 7.1 K/mm3 (4.8-10.8)
[2022-10-25 11:01] LABS: MANUAL DIFFERENTIAL MANUAL DIFFERENTIAL (MANUAL DIFF)
[2022-10-25 11:32] LABS: Lymphocytes % 7 % (10-50); Monocytes % 1 % (2-9); Neutrophils % 92 % (42-76); Total Cells Counted 100
[2022-10-25 11:33] LABS: Platelet Estimate Normal; RBC Morphology Normal
[2022-10-25 12:00] VITALS: BP 112/71; PULSE 100; PULSE 102; RESP 18; TEMP 36.9; O2SAT 100
[2022-10-25 16:00] VITALS: BP 113/68; PULSE 110; RESP 18; TEMP 36.9; O2SAT 95
[2022-10-25 16:31] LABS: Hemoglobin 7.6 g/dL (12.2-16.2)
[2022-10-25 16:32] LABS: Hematocrit 26.1 % (37.0-47.0)
--- NOTE | 2022-10-25 18:36 | EXP.DC.SUM ---
General Admission date:: 10/21/22 Discharge date: 10/25/22 HPI HPI HPI: This is a 27-year-old female with PMHx of sarcoma of the soft tissue status post recent extensive surgical resection at the [facility] getting a sarcoma removed from her right shoulder and right mid back, Also, status post 3 weeks ago. Patient came today with pleuritic chest pain and midline lumbar spine back pain. She is scheduled for radiation at the end of this month. She is not on chemotherapy. She developed a fever today to 101.5 has not had any antipyretics since that time. She describes the pain as being central to her chest with deep inspiration and she is short of breath as a result of this. She has had some discomfort in her left medial aspect of her thigh but she just thought that was normal. This is new different pain that she previously had. She denies any lower extremity swelling or history of DVT or PE. She is not on any anticoagulants or antiplatelet agents. She denies any respiratory symptoms any sore throat any urinary symptoms from an infectious standpoint. Patient to be admitted for further treatment and management. Hospital Course Hospital Course Hospital Course: Ms. 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 She presented to the er on 10/21 with pleuritic chest pain and lower back pain and also reported fever 101.5 degrees F. CTA chest without pulmonary embolism reported dense loculated pleural effusion in the left lower lobe with adjacent atelectasis, new compared to ct chest from 06/2022. However, US Chest revealed that the abnormal finding on ct was a mass, 8.8cm soft tissue mass in the lower left chest surrounded by small amount of pleural fluid. metastatic sarcoma is not excluded. #left sided lung mass #acute pneumonia #anemia The patient received antibiotics throughout the hospital course; first vanc/zosyn which were later changed to levofloxacin. The patient had a bronchoscopy, bronchoalveolar lavage and transbronchial lung biopsy on 10/25. Per Pulmonology, No obvious endobronchial lesions noted. During the procedure given difficulties advancing therapeutic bronchoscopy that was exchanged with a diagnostic bronchoscopy and airway examination was performed again. No evidence of endobronchial lesions noted upon repeat examination with diagnostic bronchoscopy. Bronchoalveolar lavage was performed in the LEFT LOWER LOBE with instillation of 60 cc normal saline with return of 20 cc back. BAL fluid was sent for bacterial culture along with cytopathology. Transbronchial biopsy was performed in the LEFT LOWER LOBE with a total of 5 biopsies performed, 5 biopsy specimens were sent in formalin for cytopathologic examination. Patient tolerated the procedure with no immediate acute complications. The patient was discharged home with 10 days of Augmentin and is will need to f/u with Pulmonology in 5-7 days to discuss bronchoscopy results. She is already scheduled to follow with radiation oncology at [facility] tomorrow. Exam Data for Last 24 hours Vital signs and Labs for Last 24 Hours: Temp Pulse Resp BP Pulse Ox O2 Del Method O2 Flow Rate 98.5 F 110 H 18 113/68 95 Room Air 2 10/25/22 16:00 10/25/22 16:00 10/25/22 16:00 10/25/22 16:00 10/25/22 16:00 10/25/22 16:42 10/25/22 08:00 FiO2 98 10/24/22 04:00 Laboratory Results - last 24 hr 10/24/22 20:00: Urine Color Yellow, Urine Appearance Clear, Urine pH 6.0, Ur Specific [place] 1.015, Urine Protein Negative, Urine Glucose (UA) Negative, Urine Ketones Negative, Urine Blood 2+, Urine Nitrate Negative, Urine Bilirubin Negative, Urine Urobilinogen 0.2, Ur Leukocyte Esterase Ne
--- NOTE | 2022-10-25 19:03 | PC.NURSE ---
A&OX4. TOLERATING RA WELL. PT HAS HAD INTERMITTENT COUGH, UNABLE TO BE PRODUCTIVE COUGH. PT AT BEDSIDE, AND BABY HAS BEEN HERE WELL. PT IS IN OKAY SPIRITS. HAS C/O BACK/CHEST PAIN AND NAUSEA X1 THIS SHIFT, TX PER JUN, EFFECTIVENESS NOTED. NO OTHER NEEDS THUS FAR. CLINIC HAS BROUGHT MEDS TO BEDSIDE. VSS.
== END 2022-10-25 20:12 | disposition home or self-care (01) | DRG 769 ==
LOC: UTC 18:40 → ER 18:53 → 2ND 21:04
PROVIDERS: Internal Medicine; Internal Medicine Pulmonary Disease; Nurse Practitioner Family; Admitting Provider Internal Medicine; Emergency Provider Student in an Organized Health Care Education/Training Program; PCP Nurse Practitioner Family; Visit Provider Internal Medicine
PROC: 0BBJ8ZX Excision of Left Lower Lung Lobe, Via Natural or Artificial Opening Endoscopic, Diagnostic (ICD-10-PCS; principal; 2022-10-24 12:00)
DX: O99.53 Diseases of the respiratory system complicating the puerperium (principal); J90 Pleural effusion, not elsewhere classified; O90.81 Anemia of the puerperium; O90.89 Other complications of the puerperium, not elsewhere classified; E87.6 Hypokalemia; Z85.831 Personal history of malignant neoplasm of soft tissue; R91.8 Other nonspecific abnormal finding of lung field
CPT/HCPCS: 31628; 36415; 71045; 71275; 72131; 76000; 76604; 80048; 80053; 80202; 81001; 82042; 82945; 83605; 83615; 83735; 83986; 84155; 84484; 84703; 85007; 85014; 85018; 85025; 87040; 87070; 87205; 87636; 88112; 93005; 93041; 93306; 99285; J2405; J2543; J2710; Q9967

== ENCOUNTER 2022-10-28 17:02 | Emergency (ER) | payer BC, OTHER, SELFPAY ==
[2022-10-28 17:04] VITALS: BP 120/51; PULSE 149; RESP 16; TEMP 39.5; O2SAT 93; BMI 26.3
--- NOTE | 2022-10-28 17:17 | ECG_ITS ---
APPROVED REPORT Exam: Resting ECG HR:138 bpm ECG Measurements Heart Rate 138 AXES AR 125 P 36 QRSd 77 QRS 61 QT 274 T -8 QTc 355 Conclusion SINUS TACHYCARDIA NONSPECIFIC ST & T-WAVE ABNORMALITY ABNORMAL ECG UNCONFIRMED REPORT Electronically signed by : Bassam Cam MD 10/29/2022 17:59:28
--- NOTE | 2022-10-28 17:20 | HMH.EDGENADL ---
Discharge Plan Disposition Patient Disposition: Xfer Other Condition: Serious Prescriptions Prescriptions: No Action acetaminophen 500 mg Tablet 500 mg PO Q4H PRN (Reason: Pain) amoxicillin-pot clavulanate [Augmentin] 500-125 mg tablet 1 tab PO TID Qty: 30 0RF Rx Instructions: take one tablet three times daily for 10 days tramadol 50 mg tablet 50 mg PO Q8H PRN (Reason: pain) Qty: 9 0RF oxycodone 5 mg Tablet 5 mg PO Q4HP PRN (Reason: Moderate To Severe Pain (4-10)) Qty: 20 0RF Referrals Follow up/Referrals: Megan Sin APRN [Primary Care Provider] - See instructions Clinical Impressions Clinical Impression: Mass of left lung, History of sarcoma, Dyspnea on exertion, Pleural effusion, left, Atelectasis of left lung, Anemia Stand Alone Forms Stand Alone Forms: Transfer Record - ED Discharge ED Provider: Ignacio Leon Adult HPI General Chief complaint: Chest Pain Time Seen by Provider: 10/28/22 17:15 Mode of Arrival: Wheelchair Source of Information: Patient Limitations: No Limitations Description of Symptoms (Recalled from ER Triage Doc. by RN): c/o chest pain that started today with soa, states that she is having a hard time at home taking care of herself due to her sickness and her is taking care of their 3 week old baby. She is unable to have her medicine doses and correct medicine that she needs to take she finds herself just taking the medicine near her and that seems to be the same medicine. Unsure if she took her antibiotic but thinks she did this morning. PT states she was just released from the hospital here due to the similar symptoms she is having. They found a mass on her lung and waiting on the results to determine what the next steps are in caring for the mass. History of Present Illness HPI narrative: 27-year-old female, history of soft tissue sarcoma of the right shoulder status post extensive resection in April of this year, 3 weeks ago with second child, history of recent admission to [facility] for evaluation of left lung mass and effusion who presents for worsening chest pain left-sided, shortness of breath, fevers at home. Patient reports that she had fevers throughout her recent inpatient stay and was discharged on Augmentin which she has been taking as prescribed. She reports that she was told she had a mass on her left lung and got a bronchoscopy and biopsy but does not yet have the results. She reports that her shortness of breath has been significantly worsening over the last several days, feels short of breath with movement, with laying down. Reports continued fever at home despite antibiotics. She was unable to use chemo or radiation for her sarcoma secondary to her . She is scheduled to start radiation tomorrow with at reportedly. Related Data Home Medications Medication Instructions Recorded Confirmed acetaminophen 500 mg tablet 500 mg PO Q4H PRN Pain 10/22/22 10/22/22 Previous Rx's Medication Instructions Recorded oxycodone 5 mg tablet 5 mg PO Q4HP PRN Moderate To 10/05/22 Severe Pain (4-10) #20 tabs amoxicillin 500 mg-potassium 1 tab PO TID #30 tabs 10/25/22 clavulanate 125 mg tablet (Augmentin) tramadol 50 mg tablet 50 mg PO Q8H PRN pain #9 tabs 10/25/22 Allergies Allergy/AdvReac Type Severity Reaction Status Date / Time No Known Allergies Allergy Verified 10/21/22 19:32 [facility] Disclaimer: The information contained in this section may have been updated after the patient was seen, as this information can be updated by other users. Medical History (Updated 10/29/22 @ 00:00 by Vinny Mckinnon) Delivery by section using low vertical uterine incision Dyspnea on exertion Mass of left lung No significant past medical history Soft tissue neoplasm Soft tissue sarcoma of shoulder Surgical History Hx of surgical b
[2022-10-28 17:30] VITALS: BP 124/67; PULSE 138; O2SAT 99
--- NOTE | 2022-10-28 17:37 | CT_ITS ---
PROCEDURE INFORMATION: Exam: CTA Chest With Contrast Exam date and time: 10/28/2022 6:16 PM Age: 27 years old Clinical indication: Shortness of breath; Additional info: Cp, tacycardia, lung mass, worsening symptoms TECHNIQUE: Imaging protocol: Computed tomographic angiography of the chest with contrast. Exam focused on the arteries. 3D rendering (Not supervised by radiologist): MIP and/or 3D reconstructed images were created by the technologist. Radiation optimization: All CT scans at this facility use at least one of these dose optimization techniques: automated exposure control; mA and/or kV adjustment per patient size (includes targeted exams where dose is matched to clinical indication); or iterative reconstruction. Contrast material: ISOUVE; Contrast volume: 70 ml; Contrast route: INTRAVENOUS (IV); REPORTING DATA: Count of CT and Cardiac NM exams in prior 12 months: This patient has received 2 known CTs and 0 known cardiac nuclear medicine studies in the 12 months prior to the current study. COMPARISON: CT ANGIO CHEST PE PROTOCOL 10/21/2022 7:34 PM FINDINGS: Pulmonary arteries: Normal. No pulmonary emboli. Aorta: Unremarkable. No aortic aneurysm. No aortic dissection. Lungs: Large heterogenous mass within the left lower chest measuring 12 x 12.4 x 8.7 cm, which exerts mass effect upon the left lower lobe and mildly displaces mediastinal structures to the right. Increasing size of a large left pleural effusion with collapse of the left upper and left lower lobes. Minimal right pleural effusion with mild adjacent compressive atelectasis. Pleural spaces: No pneumothorax. Heart: Unremarkable. No cardiomegaly. No pericardial effusion. Lymph nodes: Unremarkable. No enlarged lymph nodes. Bones/joints: Unremarkable. No acute fracture. Soft tissues: Unremarkable. IMPRESSION: 1. Large 12 x 12.4 x 8.7 cm heterogenous mass within the left chest which exerts mass effect upon the left lower lung and contributes to mild rightward mediastinal shift. Increasing size of a large left pleural effusion collapse of the left upper/lower lobes. Minimal right pleural effusion with adjacent compressive atelectasis. 2. No pulmonary arterial embolism.
[2022-10-28 17:54] LABS: Basophils % 0.2 % (0.1-2.0); Chloride 98 mmol/L (98-107); Eosinophils # 0.1 K/mm3 (0.0-0.4); Eosinophils % 1.3 % (0.1-12.0); Hematocrit 27.1 % (37.0-47.0); Hemoglobin 8.2 g/dL (12.2-16.2); Lymphocytes # 0.8 K/mm3 (0.7-4.5); Lymphocytes % 8.5 % (10-50); Mean Corpuscular HGB Conc 30.1 g/dL (31.8-35.4); Mean Corpuscular Hemoglobin 22.7 pg (27.0-31.2); Mean Corpuscular Volume 75.4 fl (81-99); Mean Platelet Volume 9.6 fl (7.4-10.4); Monocytes # 0.8 K/mm3 (0.1-1.0); Monocytes % 8.4 % (1.7-9.3); Neutrophils # 7.8 K/mm3 (1.8-7.8); Neutrophils % 81.5 % (37.0-80.0); Platelet Count 442 K/mm3 (142-424); Potassium 3.5 mmoL/L (3.5-5.1); Red Blood Count 3.59 M/mm3 (4.20-5.40); Red Cell Distribution Width 15.7 % (11.5-17.5); Sodium 137 mmol/L (136-145); White Blood Count 9.6 K/mm3 (4.8-10.8)
[2022-10-28 17:57] LABS: Alanine Aminotransferase 15 U/L (12-78); Albumin Level 3.2 g/dl (3.5-5.0); Albumin/Globulin Ratio 0.9 (1.1-1.8); Alkaline Phosphatase 148 U/L (38-126); Anion Gap 12.5 mEq/L (5-15); Aspartate Amino Transferase 19 U/L (14-36); Bilirubin,Total 0.5 mg/dl (0.2-1.3); Blood Urea Nitrogen 10 mg/dl (7-17); Carbon Dioxide 30 mmol/L (22.0-30.0); Creatinine Clearance Estimated 176 mL/min (50-200); Estimated Glomerular Filt Rate 121 ml/min (>60); GFR (African American) 146 ML/MIN (>60); Globulin 3.6 g/dL (1.3-3.2); Total Protein,Serum 6.8 g/dl (6.3-8.2)
[2022-10-28 17:58] LABS: Calcium 8.6 mg/dl (8.4-10.2); Glucose 117 mg/dl (74-100)
[2022-10-28 18:00] VITALS: BP 117/65; PULSE 136; O2SAT 96
[2022-10-28 18:03] LABS: VBG Base Excess 3.5 mmol/L (-2.4-2.3); VBG HCO3 27.9 mmol/L (23-30); VBG PCO2 43.4 mmol/L (35-51); VBG PH 7.43 mmol/L (7.31-7.41); VBG PO2 49.5 mmol/L (28-40); VBG Total CO2 29.2 mmol/L (23-27)
[2022-10-28 18:03] LABS: HCG Qualitative, Serum Negative (Negative)
[2022-10-28 18:05] VITALS: TEMP 38.1
--- NOTE | 2022-10-28 18:36 | PC.NURSE ---
pt moved from room 10 to room 2 for further interventions due to her chest x-ray
--- NOTE | 2022-10-28 18:38 | PC.NURSE ---
speaking with dr phelps regarding pt ct scan
--- NOTE | 2022-10-28 19:29 | PC.NURSE ---
Pt up to bedside toilet. Urine sample collected.
[2022-10-28 19:32] LABS: Microscopic, Urine URINE MICROSCOPIC (MICROSCOPIC)
[2022-10-28 19:34] LABS: Appearance,Urine SL CLOUDY (Clear); Blood, Urine 3+ (Negative); Color,Urine YELLOW (Yellow); Glucose,Urine (UA) Negative (Negative); Ketones,Urine TRACE (Negative); Leukocyte Esterase,Urine Negative (Negative); Nitrate,Urine Negative (Negative); Protein,Urine 1+ (Negative)
[2022-10-28 19:47] LABS: Bilirubin,Urine 1+ (Negative)
[2022-10-28 19:50] LABS: Bacteria,Urine Trace /lpf
--- NOTE | 2022-10-28 19:55 | PC.NURSE ---
Carlitos Capone calling [facility] for possible pt transfer
--- NOTE | 2022-10-28 19:57 | PC.NURSE ---
Dr. Leon speaking with Dr. Queen
--- NOTE | 2022-10-28 20:05 | PC.NURSE ---
pt accepted to ED DR Queen
--- NOTE | 2022-10-28 21:05 | PC.NURSE ---
REPORT CALED TO ABRAHAM @[facility]
[2022-10-28 22:30] VITALS: BP 117/65; PULSE 119; RESP 16; TEMP 37.3; O2SAT 98
== END 2022-10-28 22:30 | disposition other institution (70) ==
PROVIDERS: Emergency Provider Emergency Medicine; PCP Nurse Practitioner Family
DX: R07.9 Chest pain, unspecified (principal); J90 Pleural effusion, not elsewhere classified; Z85.831 Personal history of malignant neoplasm of soft tissue; R00.0 Tachycardia, unspecified; R91.1 Solitary pulmonary nodule; J98.11 Atelectasis
CPT/HCPCS: 71275; 80053; 81001; 82803; 84703; 85025; 87040; 93005; 96361; 96374; 96375; 99285; J2543; Q9967

== ENCOUNTER 2022-11-30 10:15 | Emergency (ER) | payer BC, OTHER, SELFPAY ==
[2022-11-30 10:16] VITALS: BP 125/61; PULSE 132; RESP 19; TEMP 36.7; O2SAT 96; BMI 24.6
--- NOTE | 2022-11-30 10:41 | HMH.EDGENADL ---
Discharge Plan Disposition Patient Disposition: Xfer Other Chief Complaint: Nausea/Vomiting/Diarrhea Prescriptions Prescriptions: No Action acetaminophen 500 mg Tablet 500 mg PO Q4H PRN (Reason: Pain) ondansetron HCl 8 mg tablet 8 mg PO Q8HP PRN (Reason: Nausea And Vomiting) Patient Comments: TAKE 1 TABLET BY MOUTH EVERY 8 HOURS NEEDED FOR NAUSEA FOR VOMITING prochlorperazine maleate 10 mg tablet 10 mg PO Q6HP PRN (Reason: Nausea And Vomiting) Patient Comments: TAKE 1 TABLET BY MOUTH EVERY 6 HOURS NEEDED FOR NAUSEA FOR VOMITING scopolamine base 1 mg over 3 days patch 3 day 1 mg transdermal Q72H PRN (Reason: nausea & vomiting) Patient Comments: PLACE 1 PATCH ON THE SKIN EVERY 3RD DAY OVER 72 HOURS Xalkori 250 mg capsule See Rx Instructions .ROUTE .COMPLEX Rx Instructions: as directed by Dr. Smith for chemotherapy Referrals Follow up/Referrals: Megan Sin APRN [Primary Care Provider] - See instructions Clinical Impressions Clinical Impression: Spindle cell sarcoma, Metastatic cancer, Nausea & vomiting, Acute dehydration, Sepsis Instructions Patient Instructions: DI for Diarrhea and Traveler's Diarrhea -- Adult, DI for Diarrhea and Traveler's Diarrhea -- Child, DI for Nausea -- Adult, DI for Nausea -- Child Discharge ED Provider: Phillip Garcia General Adult HPI General Chief complaint: Nausea/Vomiting/Diarrhea Stated complaint: vomiting, has CA Time Seen by Provider: 11/30/22 10:30 Mode of Arrival: Family Vehicle Source of Information: Patient, Relative and Medical Record Limitations: No Limitations Description of Symptoms (Recalled from ER Triage Doc. by RN): Pt c/o intractable nausea and vomiting since beginning her Chemo pill on Saturday (11/24). She has been taking Zofran, Compazine, and yesterday began scopolamine patch. States she may have been able to keep down a little fluid and 1/2 scoop of mash potatoes in 6 days. Reports to be shaky, weak, and unable to ambulate in her home d/t the weakness. 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 She was recently seen in our hospital where she was found to have a mass versus pleural effusion was admitted ultimately was transferred to [facility] where a chest tube was placed and fluid studies were consistent with an exudative process that was consistent with a hemothorax. She subsequently went to the operating room had a thoracotomy on November 01 and had a Pleurx placement intraoperative lymph node and pleural biopsy showed spindle cell carcinoma. Mass resection was not completed as it would have required a lobectomy without a reasonable benefit. Medical and radiation oncology evaluated the patient on November 01 and plan to offer palliative treatment if she tolerated from an outpatient standpoint. She was placed on a new medication called Xalkori which she started on Saturday and since that time has had persistent nausea vomiting abdominal discomfort which is why she comes to the emergency department today. She states she just wants to be able to eat. Related Data Home Medications Medication Instructions Recorded Confirmed acetaminophen 500 mg tablet 500 mg PO Q4H PRN Pain 10/22/22 11/30/22 crizotinib 250 mg capsule (Xalkori) See Rx Instructions .Route 11/30/22 11/30/22 .COMPLEX chemotherapy ondansetron HCl 8 mg tablet 8 mg PO Q8HP PRN Nausea And 11/30/22 11/30/22 Vomiting prochlorperazine maleate 10 mg 10 mg PO Q6HP PRN Nausea And 11/30/22 11/30/22 tablet Vomiting scopolamine base 1 mg over 3 days 1 mg transdermal Q72H PRN nausea & 11/30/22 11/30/22 transdermal patch vomiting Allergies Allergy/AdvReac Type Severity Reaction Status Date / Time No Known Allergies Allergy Verified 10/21/22 19:32 PFSH PFS
[2022-11-30 11:03] LABS: Basophils % 0.1 % (0.1-2.0); Eosinophils # 0.3 K/mm3 (0.0-0.4); Eosinophils % 1.7 % (0.1-12.0); Hematocrit 27.3 % (37.0-47.0); Hemoglobin 8.4 g/dL (12.2-16.2); Lymphocytes # 1.4 K/mm3 (0.7-4.5); Lymphocytes % 7.7 % (10-50); Mean Corpuscular HGB Conc 30.9 g/dL (31.8-35.4); Mean Corpuscular Volume 71.3 fl (81-99); Mean Platelet Volume 7.8 fl (7.4-10.4); Monocytes # 1.1 K/mm3 (0.1-1.0); Neutrophils # 15.8 K/mm3 (1.8-7.8); Neutrophils % 84.4 % (37.0-80.0); Platelet Count 746 K/mm3 (142-424); Red Blood Count 3.82 M/mm3 (4.20-5.40); White Blood Count 18.7 K/mm3 (4.8-10.8)
[2022-11-30 11:09] LABS: MANUAL DIFFERENTIAL MANUAL DIFFERENTIAL (MANUAL DIFF)
[2022-11-30 11:16] LABS: Chloride 92 mmol/L (98-107); Potassium 3.7 mmoL/L (3.5-5.1); Sodium 132 mmol/L (136-145)
[2022-11-30 11:19] LABS: Alanine Aminotransferase 39 U/L (12-78); Albumin Level 3.1 g/dl (3.5-5.0); Albumin/Globulin Ratio 0.8 (1.1-1.8); Alkaline Phosphatase 321 U/L (38-126); Anion Gap 12.7 mEq/L (5-15); Aspartate Amino Transferase 71 U/L (14-36); Bilirubin,Total 0.6 mg/dl (0.2-1.3); Blood Urea Nitrogen 7 mg/dl (7-17); Calcium 8.7 mg/dl (8.4-10.2); Carbon Dioxide 31 mmol/L (22.0-30.0); Creatinine Clearance Estimated 165 mL/min (50-200); Estimated Glomerular Filt Rate 121 ml/min (>60); GFR (African American) 146 ML/MIN (>60); Glucose 111 mg/dl (74-100); Lipase 240 U/L (23-300); Total Protein,Serum 7.1 g/dl (6.3-8.2)
[2022-11-30 11:20] LABS: Magnesium 2.2 mg/dl (1.6-2.3); Phosphorous 4.5 mg/dl (2.5-4.5)
--- NOTE | 2022-11-30 11:41 | PC.NURSE ---
pt would like to try ice chips, MD allowed, and pt was given 1 cup of ice chips. Helped her reposition in bed.
[2022-11-30 11:59] LABS: Hypochromasia 2+; Lymphocytes % 8 % (10-50); Monocytes % 4 % (2-9); Neutrophils % 88 % (42-76); Platelet Estimate Moderate Increase; Total Cells Counted 100
--- NOTE | 2022-11-30 12:17 | PC.NURSE ---
checked on pt at this time, ER MD Garcia wanted to PO challenge pt. Pt reports tolerating ice chips well, reports does still have pain. Rosa mist offered to pt to drink, pt stated she will try. updated ER MD Garcia pt still reports pain but willing to try and drink something
--- NOTE | 2022-11-30 12:21 | CT_ITS ---
FINAL REPORT TECHNIQUE: After the administration of intravenous contrast, axial images were obtained through the abdomen and pelvis by computed tomography. The study was performed with techniques to keep radiation dose as low as reasonably achievable, (ALARA). Individual dose reduction techniques using automated exposure control or adjustment of mA and/or kV according to the patient's size were employed. CLINICAL HISTORY: left abd pain, sepsis, history of met ca. recent left sided thoracotomy 1 month ago, hx sarcoma COMPARISON: 12/19/2016 FINDINGS: Abdomen: The liver parenchyma is homogeneous. There is a perfusion anomaly along the course of the falciform ligament. The gallbladder is incompletely distended. The spleen, pancreas, adrenals and kidneys appear unremarkable. The aorta is normal in caliber. There is no free fluid or adenopathy. Pelvis: The appendix is not identified. There is a left ovarian cyst measuring 4.0 x 2.5 cm. The urinary bladder is unremarkable. There is no adenopathy. There is a trace amount of free fluid in the pelvis. IMPRESSION: Left ovarian cyst. Please see report of chest CT. Reviewed, Interpreted and Dictated by Antoine Zavaleta MD Transcribed by Ivanna Du Authenticated and . [facility]
--- NOTE | 2022-11-30 12:21 | CT_ITS ---
FINAL REPORT TECHNIQUE: Routine axial images were obtained from the lung apices to below the diaphragm following IV contrast administration. Individualized dose reduction techniques using automated exposure control or adjustment of the mA and/or kV according to the patient size were employed. CLINICAL HISTORY: metastatic CA, LUQ/Left Lung pain, septic recent left sided thoracotomy 1 month ago, hx sarcoma COMPARISON: CTA 10/28/2022 FINDINGS: Previously noted mass in the inferior left pneumothorax now appears considerably larger measuring 14.4 x 16.6 cm in transverse and craniocaudal dimension. There is mass effect on the mediastinum. The mediastinal structures are shifted to the right. A component of the mass appears to extend into the azygoesophageal recess as seen on image 47 of series 3. There are small bilateral pleural effusions. IMPRESSION: Dramatic interval increase in size of complex cystic mass in the inferior left hemothorax with significant mass effect on the mediastinum and shift of mediastinal structures to the right. Reviewed, Interpreted and Dictated by Antoine Zavaleta MD Transcribed by Yolis Miller Authenticated and . [facility]
--- NOTE | 2022-11-30 12:29 | PC.NURSE ---
after ER MD reassessment pt did not tolerated drinking margo mist. further orders place by ER MD aGrcia
--- NOTE | 2022-11-30 12:32 | EXP.PHA.CONS ---
Pharmacy Consult Date: 11/30/22 Time: 12:32 Referring provider: DR. PEREZ Reason for Consult:: VANCOMYCIN DOSING Allergies Allergy/AdvReac Type Severity Reaction Status Date / Time No Known Allergies Allergy Verified 10/21/22 19:32 Home Medications Medication Instructions Recorded Confirmed Type acetaminophen 500 mg tablet 500 mg PO Q4H PRN Pain 10/22/22 11/30/22 History crizotinib 250 mg capsule (Xalkori) See Rx Instructions .Route 11/30/22 11/30/22 History .COMPLEX chemotherapy ondansetron HCl 8 mg tablet 8 mg PO Q8HP PRN Nausea And 11/30/22 11/30/22 History Vomiting prochlorperazine maleate 10 mg 10 mg PO Q6HP PRN Nausea And 11/30/22 11/30/22 History tablet Vomiting scopolamine base 1 mg over 3 days 1 mg transdermal Q72H PRN nausea & 11/30/22 11/30/22 History transdermal patch vomiting New Prescriptions to Start Prescriptions: Height: 1.73 m Weight: 73.482 kg Laboratory Results:: Laboratory Results - last 24 hr 11/30/22 10:50: WBC 18.7 H, RBC 3.82 L, Hgb 8.4 L, Hct 27.3 L, MCV 71.3 L, MCH 22.0 L, MCHC 30.9 L, RDW 18.0 H, Plt Count 746 H, MPV 7.8, Neut % (Auto) 84.4 H, Lymph % (Auto) 7.7 L, [place] % (Auto) 6.0, Eos % (Auto) 1.7, Baso % (Auto) 0.1, Neut # (Auto) 15.8 H, Lymph # (Auto) 1.4, [place] # (Auto) 1.1 H, Eos # (Auto) 0.3, Baso # (Auto) 0.0, Total Counted 100, Neutrophils % (Manual) 88 H, Lymphocytes % (Manual) 8 L, Monocytes % (Manual) 4, Platelet Estimate Moderate increase, Hypochromasia 2+, Sodium 132 L, Potassium 3.7, Chloride 92 L, Carbon Dioxide 31 H, Anion Gap 12.7, BUN 7, Creatinine 0.60, Estimated Creat Clear 165, Estimated GFR 121, Est GFR ( Amer) 146, Glucose 111 H, Calcium 8.7, Phosphorus 4.5, Magnesium 2.2, Total Bilirubin 0.6, AST 71 H, ALT 39, Alkaline Phosphatase 321 H, Total Protein 7.1, Albumin 3.1 L, Globulin 4.0 H, Albumin/Globulin Ratio 0.8 L, Lipase 240 Medical History: Medical History (Updated 11/30/22 @ 12:27 by Phillip Perez MD) Delivery by section using low vertical uterine incision Dyspnea on exertion Mass 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 CRCL method: Cockcroft and Gault using ibw(default). Drug selected: Vancomycin Loading dose (mg): Vd (liters): 58.8 (factor used: 0.8 L/kg) Giancarlo (hr-1): 0.112 Half life (hrs): 6.19 CLvanco=?? 6.586 L/hr Recommended dose: 1250 mg Interval: 8 hrs Infusion time (hrs): 2.0 Predicted peak (mcg/mL): 32.2 Predicted trough (mcg/mL): 16.44 Total body weight is being used for vancomycin dosing. Recommendations: Give Vancomycin 1250 mg q 8 hrs with an expected Cpeak of 32.2 mcg/ml and an expected Ctrough of 16.44 mcg/ml AUC 0-24 /ANTHONY Data: ANTHONY 0.5 mcg/mL:?? AUC/ANTHONY:? 1138.8 ANTHONY 1.0 mcg/mL:?? AUC/ANTHONY:? 569.4 --------- ANTHONY 1.5 mcg/mL:?? AUC/ANTHONY:? 379.6 ANTHONY 2.0 mcg/mL:?? AUC/ANTHONY:? 284.7 Thank you for the consult, will continue to follow. -DIGNA AYALA, LUCÍAD
--- NOTE | 2022-11-30 12:36 | PC.NURSE ---
MD adding orders for blood cultures, lactic, IV abx, and CT scans.
[2022-11-30 12:47] LABS: HCG Qualitative, Serum Negative (Negative)
--- NOTE | 2022-11-30 13:10 | PC.NURSE ---
pt up to CT, she was also able to give urine sample at this time.
[2022-11-30 13:11] LABS: Lactic Acid 1.1 mmol/L (0.7-2.1)
[2022-11-30 13:15] LABS: Microscopic, Urine URINE MICROSCOPIC (MICROSCOPIC)
--- NOTE | 2022-11-30 13:22 | PC.NURSE ---
Pt back from CT scan, requesting Sprite . [facility] does not carry this, however I was able to collect it from the vending machine. Pt given warm blanket as well.
[2022-11-30 13:28] LABS: Appearance,Urine CLEAR (Clear); Bilirubin,Urine Negative (Negative); Blood, Urine Negative (Negative); Color,Urine YELLOW (Yellow); Glucose,Urine (UA) Negative (Negative); Ketones,Urine Negative (Negative); Leukocyte Esterase,Urine Negative (Negative); Nitrate,Urine Negative (Negative); PH,Urine 6.5 (5.0-8.5); Protein,Urine Negative (Negative); Specific Gravity, Urine <= 1.005 (1.005-1.030)
--- NOTE | 2022-11-30 13:35 | PC.NURSE ---
MD at bedside discussing ct scans and results thus far.
[2022-11-30 13:41] LABS: Bacteria,Urine 1+ /lpf; WBC,Urine Occasional #/hpf (0-3)
--- NOTE | 2022-11-30 13:46 | PC.NURSE ---
would like to call [facility] transfer center in attempt to transfer pt for: Difficulty swallowing, progressively enhancing Lung mass (METS), and sepsis. Luz Marina Hernandez EMT-P on hold at this time.
--- NOTE | 2022-11-30 13:52 | PC.NURSE ---
called [facility] for pt transfer Dr Garcia speaking with transfer center
--- NOTE | 2022-11-30 14:06 | PC.NURSE ---
Dr. Garcia spoke with transfer center, waiting manager web application back
--- NOTE | 2022-11-30 14:42 | PC.NURSE ---
Dr Mcnamara accepting pt at [facility]
--- NOTE | 2022-11-30 14:51 | PC.NURSE ---
Transfer center called to notify us of bed assignment. [facility] 10th floor, call report to [phone]. I attempted to call report and the nurse is unavailable, I left a phone number to call me back.
[2022-11-30 15:00] VITALS: BP 136/66; PULSE 115; RESP 20; O2SAT 95
--- NOTE | 2022-11-30 15:14 | PC.NURSE ---
Called report to [facility], [facility]- Arian ALBRIGHT
[2022-11-30 15:30] VITALS: BP 137/55; PULSE 106; RESP 20; O2SAT 95
[2022-11-30 16:00] VITALS: BP 136/66; PULSE 113; RESP 20; TEMP 37.7; O2SAT 96
--- NOTE | 2022-11-30 16:00 | PC.NURSE ---
pt left with EMS at this time.
== END 2022-11-30 16:05 | disposition other institution (70) ==
PROVIDERS: Emergency Provider Student in an Organized Health Care Education/Training Program; PCP Nurse Practitioner Family
DX: A41.9 Sepsis, unspecified organism (principal); E86.0 Dehydration; E87.1 Hypo-osmolality and hyponatremia; R11.2 Nausea with vomiting, unspecified; R00.0 Tachycardia, unspecified; C49.9 Malignant neoplasm of connective and soft tissue, unspecified; C78.00 Secondary malignant neoplasm of unspecified lung
CPT/HCPCS: 71260; 74177; 80053; 81001; 83605; 83690; 83735; 84100; 84703; 85007; 85025; 87040; 96361; 96374; 96375; 96376; 99291; J2405; J2543; Q9967